=== PATIENT | female | born 1950 | race Caucasian/White ===

== ENCOUNTER → 2016-11-29 | Outpatient (CLI) | payer MEDICAID ==
[2016-11-29 10:24] LABS: Basophils % (A) 1 %; CH 32.9; Eosinophils # (A) 0.2 k/uL (0-0.7); Eosinophils % (A) 2 %; HCT 43.7 % (34.0-46.0); HDW 2.71; Luc # (Auto) 0.13; Luc % (Auto) 2; Lymphocytes # (A) 1.5 k/uL (1.0-4.8); Lymphocytes % (A) 25 %; MCH 32.3 pg (25.0-35.0); MCHC 34.3 g/dL (31.0-37.0); MCV 94.3 fL (80.0-100.0); Mean Platelet Volume 6.5; Monocytes # (A) 0.2 k/uL (0-1.0); Monocytes % (A) 4 %; Neutrophils # (A) 4.2 k/uL (1.3-7.7); Neutrophils % (A) 67 %; RBC 4.64 m/uL (3.80-5.40); RDW 13.2 % (11.5-15.5); WBC 6.2 k/uL (3.8-10.6); WBC (Perox) 6.26
[2016-11-29 10:36] LABS: ALT 41 U/L (9-52); AST 31 U/L (14-36); Alkaline Phosphatase 133 U/L (38-126); Anion Gap 13 mmol/L; Blood Urea Nitrogen 14 mg/dL (7-17); Calcium 9.6 mg/dL (8.4-10.2); Carbon Dioxide 22 mmol/L (22-30); Chloride 109 mmol/L (98-107); Cholesterol 171 mg/dL (<200); Glucose 179 mg/dL (74-99); HDL Cholesterol 50 mg/dL (40-60); Non-African American GFR(MDRD) >60 (>60 ml/min/1.73 sqM); Potassium 4.8 mmol/L (3.5-5.1); Sodium 144 mmol/L (137-145); Total Bilirubin 0.8 mg/dL (0.2-1.3); Total Protein 7.2 g/dL (6.3-8.2); Triglycerides 248 mg/dL (<150)
[2016-11-29 10:57] LABS: Hemoglobin A1C 7.5 % (4.2-6.1)
== END | disposition home or self-care (01) ==
LOC: LABWHC1 10:01
PROVIDERS: ATTEND Internal Medicine Geriatric Medicine
DX: E11.9 Type 2 diabetes mellitus without complications (principal); K21.9 Gastro-esophageal reflux disease without esophagitis; K75.81 Nonalcoholic steatohepatitis (NASH); E78.00 Pure hypercholesterolemia, unspecified
CPT/HCPCS: 36415; 80053; 80061; 83036; 84439; 84443; 85025

== ENCOUNTER → 2016-12-18 | Outpatient (CLI) | payer MEDICAID ==
--- NOTE | 2016-12-19 08:05 | CT ---
EXAMINATION TYPE: CT chest wo con DATE OF EXAM: 12/18/2016 5:29 PM COMPARISON: CT cervical spine August 22, 2016 HISTORY: Abnormal Cspine CT. No complaints at time of scan. History of breast cancer with radiation to the right upper chest CT DLP: 610 mGycm. Automated Exposure Control for Dose Reduction was Utilized. TECHNIQUE: CT scan of the thorax is performed without IV contrast. FINDINGS: LUNGS: There is persistent irregular masslike consolidation posterior right upper lobe measuring 1.9 x 1.9 cm with some adjacent mild pleural thickening stable in size and appearance from prior study. Some central aerated lung is present. Finding is favored postinflammatory in etiology. No additional area of suspicious consolidation or groundglass opacity is seen. No parenchymal nodule or mass is oth erwise noted. There is no pleural effusion or pneumothorax seen bilaterally. The tracheobronchial tr ee is patent. MEDIASTINUM: Lack of IV contrast is noted to limit evaluation for mediastinal and especially hilar ad enopathy. There are no definitive greater than 1 cm hilar or mediastinal lymph nodes. No cardiomega ly or pericardial effusion is seen. Main pulmonary artery is dilated at 3.4 cm on axial image 27, adj acent ascending aorta measures 3.[address] findings suggesting underlying pulmonary artery hypertension. Coronary artery calcification is seen which is known marker for coronary artery diseas e. OTHER: Mild multilevel spurring throughout the spine is present. Slight scoliotic curvature upper tho racic spine is seen. Surgical clips right axillary region and right chest wall are present consistent with right-sided mastectomy and reconstruction. IMPRESSION: Stable irregular masslike consolidation posterior aspect right upper lung with adjacent p leural thickening, strongly favor postinflammatory etiology or scar. Patient may benefit with continu ed CT follow-up to document two-year stability or with PET/CT to definitively exclude malignancy.
== END | disposition home or self-care (01) ==
LOC: RADCTMAIN 16:50
PROVIDERS: ATTEND Internal Medicine Geriatric Medicine
DX: R91.8 Other nonspecific abnormal finding of lung field (principal)
CPT/HCPCS: 71250

== ENCOUNTER → 2017-03-27 | Outpatient (CLI) | payer MEDICAID ==
[2017-03-27 08:54] LABS: Basophils # (A) 0.1 k/uL (0-0.2); Basophils % (A) 1 %; CH 33.6; Eosinophils # (A) 0.1 k/uL (0-0.7); Eosinophils % (A) 2 %; HCT 41.3 % (34.0-46.0); HDW 2.65; HGB 14.2 gm/dL (11.4-16.0); Luc # (Auto) 0.14; Luc % (Auto) 2; Lymphocytes # (A) 1.9 k/uL (1.0-4.8); Lymphocytes % (A) 28 %; MCH 33.2 pg (25.0-35.0); MCHC 34.5 g/dL (31.0-37.0); MCV 96.5 fL (80.0-100.0); Mean Platelet Volume 6.8; Monocytes # (A) 0.3 k/uL (0-1.0); Monocytes % (A) 4 %; Neutrophils # (A) 4.2 k/uL (1.3-7.7); Neutrophils % (A) 63 %; RBC 4.28 m/uL (3.80-5.40); RDW 13.7 % (11.5-15.5); WBC 6.7 k/uL (3.8-10.6); WBC (Perox) 6.68
[2017-03-27 09:26] LABS: Hemoglobin A1C 7.2 % (4.2-6.1)
[2017-03-27 09:41] LABS: ALT 41 U/L (9-52); AST 28 U/L (14-36); Alkaline Phosphatase 154 U/L (38-126); Anion Gap 13 mmol/L; Blood Urea Nitrogen 19 mg/dL (7-17); Calcium 9.6 mg/dL (8.4-10.2); Carbon Dioxide 22 mmol/L (22-30); Chloride 106 mmol/L (98-107); Cholesterol 202 mg/dL (<200); Glucose 184 mg/dL (74-99); HDL Cholesterol 49 mg/dL (40-60); Non-African American GFR(MDRD) >60 (>60 ml/min/1.73 sqM); Potassium 4.5 mmol/L (3.5-5.1); Sodium 141 mmol/L (137-145); Total Bilirubin 0.6 mg/dL (0.2-1.3); Total Protein 6.9 g/dL (6.3-8.2); Triglycerides 460 mg/dL (<150)
== END | disposition home or self-care (01) ==
LOC: LABWHC1 08:15
PROVIDERS: ATTEND Nurse Practitioner Family
DX: I10 Essential (primary) hypertension (principal); E11.9 Type 2 diabetes mellitus without complications; E78.00 Pure hypercholesterolemia, unspecified; R00.1 Bradycardia, unspecified
CPT/HCPCS: 36415; 80053; 80061; 83036; 84439; 84443; 85025

== ENCOUNTER → 2017-04-24 | Outpatient (CLI) | payer MEDICAID ==
--- NOTE | 2017-04-24 11:33 | ECHOF ---
Referral Reason:R94.31 adn ekg MEASUREMENTS -------- HEIGHT: 172.7 cm WEIGHT: 80.3 kg BP: 172/79 FINDINGS -------- Utilizing the standard Alphonse protocol the patient was exercised for 5 minutes, 0 seconds, achieving a maximum heart rate of 156 , which is 100% of predicted maximal heart rate. There was physiologic heart rate and blood pressure response to exercise. Max Heart Rate: 156 % of Max Predicted Heart Rate: 100% Rest Heart Rate: 83 Rest BP: 172 Max BP: 211/81 Mets Achieved: 7.0 The test was stopped because of fatigue. The test was stopped because the target heart rate was achieved. This level of exercise represents an average exercise tolerance for age. Sinus rhythm. In response to stress, the ECG showed no ST-T wave changes (see exercise report for details). In response to stress, the ECG showed no ST-T wave changes (see exercise report for details). There were normal blood pressure and heart rate responses to stress. LV size, wall thickness and systolic function are normal, with an EF of 60%. Echo images were acquired at peak stress which demonstrated new regional wall motion abnormalities. Anterior apical hypokinesis CONCLUSIONS -------- 1. This level of exercise represents an average exercise tolerance for age. 2. In response to stress, the ECG showed no ST-T wave changes (see exercise report for details). 3. Anterior apical hypokinesis 4. 2D echocardiographic evidence of inducible ishemia at achieved workload. BLEACH LIQUOR MAKER: Vickey Rangel RDCS
== END | disposition home or self-care (01) ==
LOC: RADNMMAIN 09:15
PROVIDERS: ATTEND Internal Medicine Geriatric Medicine
DX: R94.31 Abnormal electrocardiogram [ECG] [EKG] (principal)
CPT/HCPCS: 93017; 93350

== ENCOUNTER → 2017-05-01 | Outpatient (CLI) | payer MEDICAID ==
[2017-05-01 14:48] LABS: CH 32.8; CHCM 35.2; HCT 41.4 % (34.0-46.0); HDW 2.71; HGB 14.9 gm/dL (11.4-16.0); MCH 33.7 pg (25.0-35.0); MCV 93.7 fL (80.0-100.0); Mean Platelet Volume 6.9; RBC 4.42 m/uL (3.80-5.40); RDW 13.3 % (11.5-15.5); WBC 7.3 k/uL (3.8-10.6)
[2017-05-01 15:01] LABS: Anion Gap 15 mmol/L; Blood Urea Nitrogen 15 mg/dL (7-17); Carbon Dioxide 20 mmol/L (22-30); Chloride 106 mmol/L (98-107); Non-African American GFR(MDRD) >60 (>60 ml/min/1.73 sqM); Potassium 4.8 mmol/L (3.5-5.1); Sodium 141 mmol/L (137-145)
== END | disposition home or self-care (01) ==
LOC: LABPAT 13:59
PROVIDERS: ATTEND Internal Medicine Interventional Cardiology
DX: Z01.812 Encounter for preprocedural laboratory examination (principal); R94.30 Abnormal result of cardiovascular function study, unspecified
CPT/HCPCS: 36415; 80051; 82565; 84520; 85027

== ENCOUNTER 2017-05-06 06:11 | Day surgery (SDC) | payer MEDICAID ==
[2017-04-30 14:16] VITALS: BMI 27.0
[2017-05-06] MEDS ORDERED: NITROGLYCERIN SL TABS 0.4 MG TAB SUBLINGUAL PRN (06:27)
[2017-05-06] MEDS ORDERED: ATORVASTATIN 80 MG TAB PO STA (06:27)
[2017-05-06] MEDS ORDERED: ALPRAZolam 0.25 MG TAB PO PRN (06:27)
[2017-05-06] MEDS ORDERED: SODIUM CHLORIDE 0.9% 1,000 ML in EMPTY BAG 1 BAG IV ONE (06:27)
[2017-05-06] MEDS ORDERED: ALPRAZolam 0.5 MG TAB PO PRN (06:27)
[2017-05-06] MEDS ORDERED: ASPIRIN 325 MG TAB PO STA (06:27)
[2017-05-06 06:47] VITALS: TEMP 98.3
[2017-05-06] MEDS ORDERED: LIDOCAINE 2% INJ 20 MG/ML (20 ML MDV) ONE (07:10)
[2017-05-06] MEDS ORDERED: VERAPAMIL 2.5 MG/ML 2 ML AMP ONE ×2 (07:11→07:53)
[2017-05-06 07:14] LABS: Glucose,Whole Blood 211 mg/dL (75-99)
[2017-05-06] MEDS ORDERED: fentaNYL (PF) 50 MCG/ML 2 ML AMP ONE (07:25)
[2017-05-06] MEDS ORDERED: HEPARIN SODIUM 1,000 UN/ML (10ML VL) ONE (07:25)
[2017-05-06] MEDS ORDERED: diphenhydrAMINE 50 MG/ML 1 ML VIAL ONE (07:25)
[2017-05-06] MEDS ORDERED: INSULIN LISPRO (humaLOG) 300 UNIT/3 ML VIAL SQ SCH (07:30)
[2017-05-06] MEDS ORDERED: diphenhydrAMINE 50 MG/ML 1 ML VIAL IVP ONE ×2 (07:33→07:37)
[2017-05-06] MEDS ORDERED: fentaNYL (PF) 50 MCG/ML 2 ML AMP IVP ONE ×2 (07:33→07:38)
[2017-05-06] MEDS: VERAPAMIL SYRINGE (5 MG/10 ML) INTRAARTER ONE ×2 (07:34→07:53)
[2017-05-06] MEDS ORDERED: LIDOCAINE 2% INJ 20 MG/ML SQ ONE ×4 (07:34→07:45)
[2017-05-06] MEDS ORDERED: VERAPAMIL SYRINGE (5 MG/10 ML) INTRAARTER ONE ×2 (07:41→07:42)
[2017-05-06] MEDS ORDERED: HEPARIN SODIUM 1,000 UN/ML (10ML VL) IV ONE (07:51)
[2017-05-06] MEDS ORDERED: NITROGLYCERIN 1000MCG/10ML SYRINGE INTRACORON ONE (07:56)
[2017-05-06] MEDS ORDERED: IOHEXOL 350 MG/ML 125ML BOTTLE INJ ONE (08:04)
[2017-05-06] MEDS ORDERED: RX INFO: IV CONTRAST WAS GIVEN 1 EACH MISC MISCELLANE PRN (08:16)
[2017-05-06] MEDS ORDERED: ZOLPIDEM 10 MG TAB PO PRN (08:17)
[2017-05-06] MEDS ORDERED: SODIUM CHLORIDE 0.9% 1,000 ML IV SCH (08:30)
[2017-05-06] MEDS ORDERED: VENLAFAXINE HCL 37.5 MG TAB PO SCH (09:00)
[2017-05-06] MEDS ORDERED: NON-FORMULARY DRUG (Omeprazole [Omeprazole] 20 MG) PO SCH (09:00)
[2017-05-06] MEDS ORDERED: LISINOPRIL 10 MG TAB PO SCH (09:00)
[2017-05-06 09:52] VITALS: RESP 16
[2017-05-06 13:07] VITALS: BP 145/76; PULSE 87
[2017-05-06] MEDS ORDERED: ATORVASTATIN 20 MG TAB PO SCH (21:00)
[2017-05-06] MEDS ORDERED: NON-FORMULARY DRUG (Aspirin [Adult Low Dose Aspirin Ec] 162 MG) PO SCH (21:00)
--- NOTE | 2017-05-07 05:30 | CC ---
Mrs. Membreno is a 66-year-old female with known history of hypertension, hyperlipidemia and diabetes mellitus as well as family history of premature coronary artery disease who presented with occasional fluttering in the chest underwent a stress echocardiogram that revealed evidence of anteroapical wall ischemia. In view of that, recommendation was made regarding cardiac catheterization. The procedure as well as the risks and the complications were discussed with the patient who is in full understanding and agreement. PROCEDURE: Patient was brought to the labor utilization superintendent in fasting semi-sedated state after receiving Fentanyl and Benadryl and achieving moderate conscious sedated stated, using Xylocaine anesthesia under Seldinger's technique, a 6 Eritrean was introduced into the right radial artery. Selective right and left coronary angiography was performed using 5 Eritrean 3-1/2 bend right and left Pan catheter. Multiple views of the coronary artery including hemiaxial views were obtained. Following that 5 Eritrean tight pigtail catheter was introduced into the left ventricle and a 30-degree FINE view of the left ventricle was obtained. Following that, catheters and sheaths were removed. Hemostasis was obtained with deployment of an TR band. There was no immediate complication. The patient was returned to her room in stable condition. FINDINGS: LEFT MAIN: This is a large size vessel bifurcating into the circumflex and left anterior descending artery. Left main coronary artery is without any significant obstructive disease. LEFT ANTERIOR DESCENDING ARTERY: This is a large size vessel reaching towards the apex with a wrap around apex segment giving rise to a large branching diagonal branch proximally. The left anterior descending artery proximally and before the take off of the first septal professor of german has an eccentric 30% plaque. The rest of the vessel has mild intimal disease without any evidence of high grade stenosis. LEFT CIRCUMFLEX: This is a dominant vessel bifurcating distally in PDA and PLV giving rise to a proximal large obtuse marginal branch. The left circumflex has mild plaque in the mid segment of 20% to 30%. The rest of the vessel has no high grade stenosis. RIGHT CORONARY ARTERY: This is a small nondominant vessel giving rise to an acute marginal branch. The right coronary artery as well as its branches has no evidence of obstructive coronary disease. LEFT VENTRICULOGRAM: The left ventriculogram was performed in the 30-degree FINE view and revealed normal left ventricular size and systolic function. Ejection fraction 60%. There was no significant mitral regurgitation. HEMODYNAMICS; There was no gradient across the aortic valve. The left ventricular end-diastolic pressure was 20 mmHg. CONCLUSION: 1. Mild triple vessel coronary artery disease. 2. Normal left ventricular size and systolic function. RECOMMENDATIONS: In view of finding anatomy, I recommend to continue medical therapy with aggressive coronary risk modification that has been initiated. Those findings and recommendations were discussed with the patient and her family and are in full understanding and agreement. Duration of the procedure is 27 minutes. MTDD
--- NOTE | 2017-05-07 05:37 | MISC ---
May 06, 2017 Re: Amelia Membreno Dear Dr. West: I had the opportunity to perform cardiac catheterization on Mrs. Membreno at [facility] on the 06 of May and a full copy of the procedure note will be forwarded to you. In brief, she was found to have mild triple vessel coronary artery disease with preserved systolic function. Based on those findings, I recommend continue mediation therapy with aggressive coronary risk modifications that have been initiated. Thank you again for allowing me the opportunity to participate in her care. Please feel free to call for any questions. Sincerely yours, Ciro LEBLANC
== END 2017-05-06 13:10 | disposition home or self-care (01) ==
LOC: CATHCVL 06:11
PROVIDERS: ATTEND Internal Medicine Interventional Cardiology
DX: I25.10 Atherosclerotic heart disease of native coronary artery without angina pectoris (principal); R94.39 Abnormal result of other cardiovascular function study; I10 Essential (primary) hypertension; E78.2 Mixed hyperlipidemia; E11.9 Type 2 diabetes mellitus without complications; E78.00 Pure hypercholesterolemia, unspecified; Z82.49 Family history of ischemic heart disease and other diseases of the circulatory system; Z85.3 Personal history of malignant neoplasm of breast; Z90.12 Acquired absence of left breast and nipple; Z79.84 Long term (current) use of oral hypoglycemic drugs; Z79.82 Long term (current) use of aspirin; Z79.899 Other long term (current) drug therapy; Z87.891 Personal history of nicotine dependence
CPT/HCPCS: 93458; 99152; 99153; C1769 ×3; C1894; J2001; J1200; J3010; J1644; Q9967

== ENCOUNTER → 2017-07-08 | Outpatient (CLI) | payer MEDICAID ==
--- NOTE | 2017-07-09 07:19 | MM ---
Reason for exam: follow-up at short interval from prior study. Last mammogram was performed 10 months ago. History: Patient is postmenopausal, has history of breast cancer at age 49, previous chest radiation therapy, and is nulliparous. Family history of breast cancer in maternal aunt at age 80 and breast cancer in maternal aunt at age 40. Excisional biopsy of the left breast, 2008. TRAM Reconstruction, 2005. Breast lift of the left breast, 2001. Reduction of the left breast, 2001. Mastectomy of the right breast, 1999. Chemotherapy. Radiation therapy. Took antineoplastic for 11 years beginning at age 50. Physical Findings: Nurse did not find any significant physical abnormalities on exam. MG 3D Diag Mammo W/Cad LT CC and MLO view(s) were taken of the left breast. Prior study comparison: September 19, 2016, left breast MG 3d diag mammo w/cad LT. September 13, 2015, left breast MG 3d diag mammo w/cad LT. The breast tissue is heterogeneously dense. This may lower the sensitivity of mammography. Finding: There are typically benign round, diffuse/scattered, regional calcifications in the left breast. There is no discrete abnormality. These results were verbally communicated with the patient and result sheet given to the patient on 07/08/17. ASSESSMENT: Benign, BI-RAD 2 RECOMMENDATION: Follow-up diagnostic mammogram of the left breast in 1 year.
--- NOTE | 2017-07-09 07:20 | USB ---
Reason for exam: follow-up at short interval from prior study. History: Patient is postmenopausal, has history of breast cancer at age 49, previous chest radiation therapy, and is nulliparous. Family history of breast cancer in maternal aunt at age 80 and breast cancer in maternal aunt at age 40. Excisional biopsy of the left breast, 2008. TRAM Reconstruction, 2005. Breast lift of the left breast, 2001. Reduction of the left breast, 2001. Mastectomy of the right breast, 1999. Chemotherapy. Radiation therapy. Took antineoplastic for 11 years beginning at age 50. US Breast LT Left breast ultrasound includes all four quadrants, the retroareolar region and axilla. Finding demonstrates a 0.5 x 0.6 x 0.3cm lesion too small to characterize at 6 o'clock, stable, 4cm from nipple. These results were verbally communicated with the patient and result sheet given to the patient on 07/08/17. ASSESSMENT: Benign, BI-RAD 2 RECOMMENDATION: Follow-up diagnostic mammogram of the left breast in 1 year.
== END | disposition home or self-care (01) ==
LOC: RADMAMWWP 15:00
PROVIDERS: ATTEND Internal Medicine Geriatric Medicine
DX: C50.911 Malignant neoplasm of unspecified site of right female breast (principal)
CPT/HCPCS: 76641; G0206; G0279

== ENCOUNTER → 2017-11-27 | Outpatient (CLI) | payer MEDICAID, MEDICARE ==
[2017-11-27 11:32] LABS: ALT 44 U/L (9-52); AST 34 U/L (14-36); Albumin 4.3 g/dL (3.5-5.0); Alkaline Phosphatase 133 U/L (38-126); Anion Gap 13 mmol/L; Blood Urea Nitrogen 14 mg/dL (7-17); Calcium 10.1 mg/dL (8.4-10.2); Carbon Dioxide 24 mmol/L (22-30); Chloride 104 mmol/L (98-107); Glucose 194 mg/dL (74-99); Potassium 4.9 mmol/L (3.5-5.1); Sodium 141 mmol/L (137-145); Total Bilirubin 0.4 mg/dL (0.2-1.3); Total Protein 6.9 g/dL (6.3-8.2)
== END | disposition home or self-care (01) ==
LOC: LABWHC1 10:46
PROVIDERS: ATTEND Internal Medicine Geriatric Medicine
DX: R94.5 Abnormal results of liver function studies (principal)
CPT/HCPCS: 36415; 80053

== ENCOUNTER → 2018-08-18 | Outpatient (CLI) | payer MEDICARE ==
--- NOTE | 2018-08-18 15:19 | NM ---
EXAMINATION TYPE: NM bone scan whole body DATE OF EXAM: 08/18/2018 COMPARISON: NONE HISTORY: Hypercalcemia Delayed whole-body scanning was performed following the injection of 23.4 mCi Tc 99m MDP. Images acq uired 3 hours post injection. FINDINGS: Soft tissue uptake is normal. Uptake within the feet, knees, shoulders, hands is likely due to degene rative change. No areas of abnormal increased or decreased uptake to suggest metastatic disease. IMPRESSION: Osteoarthritis.
== END | disposition home or self-care (01) ==
LOC: RADNMMAIN 11:10
PROVIDERS: ATTEND Internal Medicine Geriatric Medicine
DX: M19.90 Unspecified osteoarthritis, unspecified site (principal)
CPT/HCPCS: 78306; A9503

== ENCOUNTER → 2018-09-08 | Outpatient (CLI) | payer MEDICARE ==
--- NOTE | 2018-09-09 08:22 | MM ---
Reason for exam: additional evaluation requested from prior study. Last mammogram was performed 1 year and 2 months ago. History: Patient is postmenopausal, has history of breast cancer at age 49, previous chest radiation therapy, and is nulliparous. Family history of breast cancer in maternal aunt at age 80 and breast cancer in maternal aunt at age 40. Excisional biopsy of the left breast, 2008. TRAM Reconstruction, 2005. Breast lift of the left breast, 2001. Reduction of the left breast, 2001. Mastectomy of the right breast, 1999. Chemotherapy. Radiation therapy. Took antineoplastic for 11 years beginning at age 50. Physical Findings: Nurse did not find any significant physical abnormalities on exam. MG 3D Diag Mammo W/Cad LT CC and MLO view(s) were taken of the left breast. Prior study comparison: July 08, 2017, left breast MG 3d diag mammo w/cad LT. September 19, 2016, left breast MG 3d diag mammo w/cad LT. The breast tissue is heterogeneously dense. This may lower the sensitivity of mammography. Benign calcifications in the left breast. No suspicious abnormality. These results were verbally communicated with the patient and result sheet given to the patient on 09/08/18. ASSESSMENT: Benign, BI-RAD 2 RECOMMENDATION: Follow-up diagnostic mammogram of the left breast in 1 year.
== END | disposition home or self-care (01) ==
LOC: RADMAMWWP 15:26
PROVIDERS: ATTEND Internal Medicine Geriatric Medicine
DX: Z08 Encounter for follow-up examination after completed treatment for malignant neoplasm (principal); Z85.3 Personal history of malignant neoplasm of breast
CPT/HCPCS: 77065; G0279; 77061

== ENCOUNTER → 2019-01-15 | Outpatient (CLI) | payer MEDICARE ==
--- NOTE | 2019-01-16 10:28 | BD ---
EXAMINATION TYPE: Axial Bone Density DATE OF EXAM: 01/15/2019 COMPARISON: 11.28.2011 CLINICAL HISTORY: 68 YR OLD FEMALE...ICD-10 CODE: M81.0 OSTEOPOROSIS Height: 67 Weight: 180 FRAX RISK QUESTIONS: Family History (Parent hip fracture): YES Current Tobacco Use: YES RISK FACTORS HISTORY OF: Family History of Osteoporosis: YES, HER MOTHER WITH BROKEN HIP Postmenopausal woman: YES, AT AGE 49 YRS OLD MEDICATIONS: Additional Medications: BP MEDS, EFFEXOR, ORAL DIABETIC MEDS, HX OF CHEMO AND RADIATION, REFLUX MEDS, STATIN FOR CHOLESTEROL, Additional History: HYPERCALCEMIA, RT BREAST CANCER, MASTECTOMY WITH TRAM FLAP RECONSTRUCTION, DIABET IC, HYPERTENSION EXAM MEASUREMENTS: Bone mineral densitometry was performed using the Cam[employer] System. Bone mineral density as measured about the Lumbar spine is: ----- L1-L4(G/cm2): 1.052 T Score Values are as follows: ----- L1: -1.8 ----- L2: -0.9 ----- L3: -0.6 ----- L4: -1.2 ----- L1-L4: -1.1 Bone mineral density has: Decreased -0.4% since study of: 11.28.2011 Bone mineral density about the R hip (g/cm2): 0.784 Bone mineral density about the L hip (g/cm2): 0.821 T Score values are as follows: -----R Neck: -2.1 -----L Neck: -2.0 -----R Total: -1.8 -----L Total: -1.5 Bone mineral density has: Decreased -2.8% since study of: 11.28.2011 FRAX%s: THERE IS A 20.1% CHANCE FOR A MAJOR OSTEOPOROTIC FX AND A 3.8% FOR HIP.....PROBABILITY FOR FX IN 10 YRS TIME IMPRESSION: Osteopenia. NOTE: T-SCORE=SD OF THE YOUNG ADULT MEAN.
== END | disposition home or self-care (01) ==
LOC: RADBDWWP 15:59
PROVIDERS: ATTEND Internal Medicine Geriatric Medicine
DX: M85.851 Other specified disorders of bone density and structure, right thigh (principal); M85.852 Other specified disorders of bone density and structure, left thigh; M85.88 Other specified disorders of bone density and structure, other site
CPT/HCPCS: 77080

== ENCOUNTER 2019-01-28 07:10 | Day surgery (SDC) | payer MEDICARE ==
[2019-01-26 15:35] VITALS: BMI 27.7
[~2019-01-28 07:10] MED LIST: LACTATED RINGERS 1,000 ML IV SCH; LIDOCAINE 1% 20 ML VIAL (10MG/ML) FOR IV START INTRADERMA PRN
[2019-01-28 07:45] VITALS: RESP 16; TEMP 98
[2019-01-28] MEDS ORDERED: LACTATED RINGERS 1,000 ML IV ONE (07:56)
[2019-01-28 08:04] LABS: Glucose,Whole Blood 170 mg/dL (75-99)
[2019-01-28] MEDS ORDERED: PROPOFOL 10 MG/ML 20 ML VIAL IV ONE (08:10)
--- NOTE | 2019-01-28 08:39 | P.PCN ---
Date of Procedure: 01/28/19 Procedure(s) Performed: BRIEF HISTORY: Patient is a 68-year-old pleasant white female, scheduled for an elective colonoscopy as a part of screening for colonic neoplasia. She was recently noted to have stool that was positive for cologuard. PROCEDURE PERFORMED: Colonoscopy with snare polypectomy. PREOPERATIVE DIAGNOSIS: Positive cologuard. IV sedation per Anesthesia. PROCEDURE: After informed consent was obtained, the patient, was brought into the endoscopy unit. IV sedation was administered by Anesthesia under continuous monitoring. Digital rectal examination was normal. Initially the Olympus CF-160 flexible video colonoscope was then inserted in the rectum, gradually advanced into the sigmoid colon and further advancement was not possible because of acute angle duration this area. The scope was removed pediatric colonoscopy was then introduced into the rectum and gradually advanced into the cecum without any difficulty. Careful examination was performed as the scope was gradually being withdrawn. Ileocecal valve and the appendiceal orifice were visualized and appeared normal. Prep was fair. Mucosa of the cecum appeared normal. In the ascending colon there was a 5 mm sessile polyp removed by snare polypectomy. In the transverse colon there was another 5 mm polyp that was removed by snare polypectomy. Rest of the, ascending colon, transverse colon, descending colon, sigmoid colon, and rectum appeared normal. Retroflexion was performed in the rectum and no lesions were seen. The patient tolerated the procedure well. IMPRESSION: 5 mm ascending colon polyp status post snare polypectomy 5 mm transverse colon polyp status post snare polypectomy Extensive left sided diverticulosis RECOMMENDATIONS: Findings of this examination were discussed with the patient as well as her family. She was advised to follow with the biopsy results. If the biopsy shows adenoma, she can have a repeat colonoscopy in 5 years.
[2019-01-28 08:54] VITALS: BP 128/76; PULSE 80
== END 2019-01-28 09:12 | disposition home or self-care (01) ==
LOC: ORWHC2ENDO 07:10
PROVIDERS: ATTEND Internal Medicine Gastroenterology
DX: K57.30 Diverticulosis of large intestine without perforation or abscess without bleeding (principal); D12.2 Benign neoplasm of ascending colon; D12.3 Benign neoplasm of transverse colon; Z79.82 Long term (current) use of aspirin; Z79.899 Other long term (current) drug therapy; I10 Essential (primary) hypertension; E78.5 Hyperlipidemia, unspecified; Z85.3 Personal history of malignant neoplasm of breast; Z92.21 Personal history of antineoplastic chemotherapy; Z92.3 Personal history of irradiation; E11.9 Type 2 diabetes mellitus without complications; D68.51 Activated protein C resistance; Z79.84 Long term (current) use of oral hypoglycemic drugs
CPT/HCPCS: 88305; 45385; J2704

== ENCOUNTER → 2019-06-11 | Outpatient (CLI) | payer MEDICARE ==
--- NOTE | 2019-06-11 12:21 | US ---
EXAMINATION TYPE: US abdomen complete DATE OF EXAM: 06/11/2019 COMPARISON: NONE CLINICAL HISTORY: R10.84 GENERALIZED ABD PAIN. Patient feels lump RUQ, Just under right breast area. Patient history of breast cancer with reconstruction. EXAM MEASUREMENTS: Liver Length: 18.1 cm Gallbladder Wall: 0.2 cm CBD: 0.4 cm Spleen: 11.6 cm Right Kidney: 11.5 x 5.6 x 5.5 cm Left Kidney: 12.6 x 6.3 x 5.9 cm Pancreas: Obscured by bowel gas Liver: wnl Gallbladder: 4 mm nondependent polyp is noted on image . Evidence for sonographic Candelario's sign: No CBD: wnl Spleen: wnl Right Kidney: 1.0 cm cyst lower pole, lateral. ? Mid pole solid mass = 4.1 x 2.9 x 2.4 cm with vascu larity. Left Kidney: No hydronephrosis or masses seen, sub optimal visualization overall. Upper IVC: wnl Abd Aorta: wnl No mass seen at area of palpable lump The liver is homogenous. The intrahepatic portion of the IVC and proximal abdominal aorta are within normal limits. There is no evidence of cholelithiasis. Common bile duct is unremarkable. The visu alized portions of the pancreas are homogenous. The spleen is unremarkable. Kidneys are symmetric a nd free of hydronephrosis. IMPRESSION: 1. Solid-appearing right renal mass measures 4.1 cm and has internal vascularity. Three-phase enhance d CT abdomen is recommended to exclude neoplasm. 2. No solid or cystic mass is seen at the patient's area of palpable abnormality of the right chest w all. Considering this patient's history of breast cancer diagnostic mammogram is recommended on the r ight. 3. Incidentally noted subcentimeter gallbladder polyp and right renal cyst. 4. Obscuration of the pancreas by overlying bowel gas.
== END | disposition home or self-care (01) ==
LOC: RADUSWWP 10:02
PROVIDERS: ATTEND Internal Medicine Geriatric Medicine
DX: K86.89 Other specified diseases of pancreas (principal)
CPT/HCPCS: 76700

== ENCOUNTER → 2019-06-23 | Outpatient (CLI) | payer MEDICARE ==
[2019-06-23 17:54] LABS: African American GFR (CKD) >90 (>60 ml/min/1.73 sqM); Blood Urea Nitrogen 14 mg/dL (7-17)
--- NOTE | 2019-06-24 07:39 | CT ---
EXAMINATION TYPE: CT abdomen wo/w con DATE OF EXAM: 06/23/2019 COMPARISON: 06/11/2019 ultrasound INDICATION: right side renal mass. hx of breast ca. DLP: 1294.3 mGycm, Automated exposure control for dose reduction was used. CONTRAST: 100 mL of Isovue 300. Study performed with Oral Contrast TECHNIQUE: Axial images were obtained from above the diaphragm to the iliac crests in the axial plane at 5 mm thick sections. Reconstructed images are reviewed on the computer in the coronal plane. FINDINGS: Limited CT sections are obtained the lung bases. The lung bases are clear. CT ABDOMEN: Liver: Normal Spleen: Normal Pancreas: Normal Adrenal glands: The adrenal glands are normal. Gallbladder: Normal Kidneys: No masses are evident. No hydronephrosis is present. On precontrast images there are punct ate calcifications within the right kidney. No hydronephrosis is evident. No hydroureter is evident. Early and delayed phase contrast imaging is performed through the kidneys. There is a 1 cm hypodense lesion measuring 26 Hounsfield units in the posterior lateral right mid kidney. This is best visuali zed on the delayed images. The patient's right renal mass identified by ultrasound is not readily jozef arent on the CT examination. Recommend contrast MRI to complete the evaluation. Aorta: Vascular calcification is within the aorta. Inferior vena cava: Normal. Loops of bowel within the abdomen and upper pelvis are normal. There are loops of bowel which are incompletely distended or lack oral contrast limiting their evaluation. Appendix: Normal as visualized. Osseous structures: No suspicious lytic or sclerotic lesions. Facet degenerative changes and right sa croiliac joint degenerative changes are noted within the [id number]. IMPRESSIONS: 1. No obvious mass based on CT examination within the right kidney. Contrast MRI is recommended to c omplete the evaluation. 2. There is a small probable cyst corresponding to the ultrasound findings within the posterior right mid kidney.
== END | disposition home or self-care (01) ==
LOC: RADCTMAIN 16:28
PROVIDERS: ATTEND Internal Medicine Geriatric Medicine
DX: N28.89 Other specified disorders of kidney and ureter (principal)
CPT/HCPCS: 82565; 84520; 74170; 36415; Q9967

== ENCOUNTER → 2019-07-13 | Outpatient (CLI) | payer MEDICARE ==
--- NOTE | 2019-07-13 14:18 | MR ---
MR abdomen with and without contrast HISTORY: Disorder of kidneys Multiplanar multisequence and postcontrast images obtained through the kidneys following 7.5 cc Gadav ist IV. Correlation to CT 06/23/2019, ultrasound 06/11/2019 Cortical cysts are again noted in the kidneys bilaterally, the largest on the right measures only jozef roximately 13 mm in size similar to that seen on ultrasound and the right kidney. There is no evident soft tissue mass present. Lobular contour within the right kidney likely accounts for appearance on ultrasound. No hydronephrosis. Adrenal glands, spleen, pancreas, gallbladder are unremarkable. Lung bases are clear. Aorta shows nor mal caliber. There is no ascites. Diverticular change noted in the colon. IMPRESSION: No evident soft tissue renal mass. Small cortical cysts, largest in the right kidney as d escribed.
== END | disposition home or self-care (01) ==
LOC: RADMRIMAIN 08:58
PROVIDERS: ATTEND Internal Medicine Geriatric Medicine
DX: N28.89 Other specified disorders of kidney and ureter (principal)
CPT/HCPCS: 74183; A9585

== ENCOUNTER → 2019-10-28 | Outpatient (CLI) | payer MEDICARE ==
--- NOTE | 2019-10-28 12:04 | MM ---
Reason for exam: additional evaluation requested from prior study. Last mammogram was performed 1 year and 2 months ago. History: Patient is postmenopausal, has history of breast cancer at age 49, previous chest radiation therapy, and is nulliparous. Family history of breast cancer in maternal aunt at age 80 and breast cancer in maternal aunt at age 40. Excisional biopsy of the left breast, 2008. TRAM Reconstruction, 2005. Breast lift of the left breast, 2001. Reduction of the left breast, 2001. Mastectomy of the right breast, 1999. Chemotherapy. Radiation therapy. Took antineoplastic for 11 years beginning at age 50. Physical Findings: Nurse did not find any significant physical abnormalities on exam. MG 3D Diag Mammo W/Cad LT CC, MLO, and ML view(s) were taken of the left breast. Prior study comparison: September 08, 2018, left breast MG 3d diag mammo w/cad LT. July 08, 2017, left breast MG 3d diag mammo w/cad LT. The breast tissue is heterogeneously dense. This may lower the sensitivity of mammography. Benign appearing calcifications in the left breast. These results were verbally communicated with the patient and result sheet given to the patient on 10/28/19. ASSESSMENT: Incomplete: need additional imaging evaluation, BI-RAD 0 RECOMMENDATION: Ultrasound. (right)
--- NOTE | 2019-10-28 12:05 | USB ---
Reason for exam: additional evaluation requested from abnormal screening. History: Patient is postmenopausal, has history of breast cancer at age 49, previous chest radiation therapy, and is nulliparous. Family history of breast cancer in maternal aunt at age 80 and breast cancer in maternal aunt at age 40. Excisional biopsy of the left breast, 2008. TRAM Reconstruction, 2005. Breast lift of the left breast, 2001. Reduction of the left breast, 2001. Mastectomy of the right breast, 1999. Chemotherapy. Radiation therapy. Took antineoplastic for 11 years beginning at age 50. US Breast Limited RT Right limited breast ultrasound including focal area of concern, retroareolar and axilla demonstrates no cystic or solid lesion seen. These results were verbally communicated with the patient and result sheet given to the patient on 10/28/19. ASSESSMENT: Incomplete: need additional imaging evaluation, BI-RAD 0 RECOMMENDATION: Breast MRI.
== END | disposition home or self-care (01) ==
LOC: RADMAMWWP 08:12
PROVIDERS: ATTEND Internal Medicine Geriatric Medicine
DX: R92.8 Other abnormal and inconclusive findings on diagnostic imaging of breast (principal); Z85.3 Personal history of malignant neoplasm of breast
CPT/HCPCS: 77065; 76642; G0279; 77061

== ENCOUNTER → 2021-02-22 | Outpatient (CLI) | payer MEDICARE ==
--- NOTE | 2021-02-23 11:52 | MM ---
Reason for exam: additional evaluation requested from prior study. Last mammogram was performed 1 year and 4 months ago. History: Patient is postmenopausal, has history of breast cancer at age 49, previous chest radiation therapy, and is nulliparous. Family history of breast cancer in maternal aunt at age 80 and breast cancer in maternal aunt at age 40. Excisional biopsy of the left breast, 2008. TRAM Reconstruction, 2005. Breast lift of the left breast, 2001. Reduction of the left breast, 2001. Mastectomy of the right breast, 1999. Chemotherapy. Radiation therapy. Took antineoplastic for 15 years. Physical Findings: Nurse did not find any significant physical abnormalities on exam. MG 3D Diag Mammo W/Cad LT CC, MLO, and XCCL view(s) were taken of the left breast. Prior study comparison: October 28, 2019, left breast MG 3d diag mammo w/cad LT. September 08, 2018, left breast MG 3d diag mammo w/cad LT. The breast tissue is heterogeneously dense. This may lower the sensitivity of mammography. Scattered left breast calcifications. These results were verbally communicated with the patient and result sheet given to the patient on 02/22/21. ASSESSMENT: Benign, BI-RAD 2 RECOMMENDATION: Follow-up diagnostic mammogram of the left breast in 1 year.
== END | disposition home or self-care (01) ==
LOC: RADMAMWWP 13:01
PROVIDERS: ATTEND Internal Medicine Geriatric Medicine
DX: R92.2 Inconclusive mammogram (principal); R92.1 Mammographic calcification found on diagnostic imaging of breast; Z78.0 Asymptomatic menopausal state; Z80.3 Family history of malignant neoplasm of breast; Z85.3 Personal history of malignant neoplasm of breast
CPT/HCPCS: 77065; G0279; 77061

== ENCOUNTER → 2022-05-21 | Outpatient (CLI) | payer MEDICARE ==
--- NOTE | 2022-05-21 13:28 | MM ---
Reason for Exam: Follow-up at short interval from prior study. Last mammogram was performed 1 year(s) and 3 month(s) ago. Patient History: Menarche at age 14. Patient has no children. Postmenopausal. Breast cancer, age 49. Previous chest radiation therapy at age 49. Previous chemotherapy at age 49. 1999, Mastectomy on the Right side. 2001, Reduction on the Left side. 2008, Excisional Biopsy on the Left side. Chemotherapy. 2005, TRAM Reconstruction. Radiation Therapy. Maternal aunt had breast cancer, age 80. Maternal aunt had breast cancer, age 40. Prior Study Comparison: 09/08/2018 Left Diagnostic Mammogram, [facility]. 10/28/2019 Left Diagnostic Mammogram, [facility]. 02/22/2021 Left Diagnostic Mammogram, [facility]. Tissue Density: Left: The breast tissue is heterogeneously dense. This may lower the sensitivity of mammography. Findings: Analyzed By CAD. Reduction mammoplasty changes. Benign round and punctate calcifications. Question anterior asymmetric density does not persist on additional views. No significant change from prior exams. Overall Assessment: Benign, BI-RAD 2 Management: Screening Mammogram of the left breast in 1 year. 1. Patient should continue monthly self breast exams. 2. A clinical breast exam by your physician is recommended on an annual basis. 3. This exam should not preclude additional follow-up of suspicious palpable abnormalities. Results were given to the patient verbally at the time of exam. Electronically signed and approved by: Carlos Lomas M.D. Radiologist
== END | disposition home or self-care (01) ==
LOC: RADMAMWWP 12:53
PROVIDERS: ATTEND Internal Medicine Geriatric Medicine
DX: Z78.0 Asymptomatic menopausal state (principal); Z85.3 Personal history of malignant neoplasm of breast; Z80.3 Family history of malignant neoplasm of breast
CPT/HCPCS: 77065; G0279; 77061

== ENCOUNTER → 2022-12-21 | Outpatient (CLI) | payer MEDICARE ==
[2022-12-21 23:43] LABS: African American GFR (CKD) 52.5 (60.0-200.0); Albumin 4.3 g/dL (3.8-4.9); Albumin/Globulin Ratio 1.85 (1.60-3.17); Anion Gap 13.4 mmol/L (10.00-18.00); BUN/Creat Ratio 17.02 Ratio (12.00-20.00); Blood Urea Nitrogen 20.6 mg/dL (9.0-27.0); Calcium 10.2 mg/dL (8.7-10.3); Carbon Dioxide 21.8 mmol/L (20.0-27.5); Globulin 2.3 g/dL (1.6-3.3); Non-African American GFR(CKD) 45.3 (60.0-200.0); Potassium 3.8 mmol/L (3.5-5.5); Total Bilirubin 0.3 mg/dL (0.30-1.20); Total Protein 6.6 g/dL (6.2-8.2)
== END | disposition home or self-care (01) ==
LOC: LABWHC1 15:34
PROVIDERS: ATTEND Internal Medicine Interventional Cardiology
DX: I42.8 Other cardiomyopathies (principal)
CPT/HCPCS: 36415; 80053; 83880

== ENCOUNTER 2022-12-25 08:23 | Day surgery (SDC) | payer MEDICARE ==
[~2022-12-25 08:23] MED LIST changes: +ALPRAZolam 0.25 MG TAB PO PRN; +ALPRAZolam 0.5 MG TAB PO PRN; +ASPIRIN 325 MG TAB PO STA; +ATORVASTATIN 80 MG TAB PO STA; +HEPARIN SODIUM,PORCINE 10,000 UNIT in SODIUM CHLORIDE 0.9% 1,000 ML IRRIGATION PRN; +HEPARIN SODIUM,PORCINE 2,500 UNIT in SODIUM CHLORIDE 0.9% 250 ML IRRIGATION PRN; -LACTATED RINGERS 1,000 ML IV SCH; -LIDOCAINE 1% 20 ML VIAL (10MG/ML) FOR IV START INTRADERMA PRN; +NITROGLYCERIN SL TABS 0.4 MG TAB SUBLINGUAL PRN; +SODIUM CHLORIDE 0.9% 1,000 ML in EMPTY BAG 1 BAG IV ONE
[2022-12-25 09:04] LABS: Glucose,Whole Blood 172 mg/dL (70-110)
[2022-12-25 09:09] LABS: Basophils % (A) 0 %; Eosinophils # (A) 0.1 k/uL (0-0.7); Eosinophils % (A) 2 %; HCT 36.6 % (34.0-46.0); HGB 12.2 gm/dL (11.4-16.0); Hypochromasia Slight; Lymphocytes # (A) 1.2 k/uL (1.0-4.8); Lymphocytes % (A) 15 %; MCH 29.6 pg (25.0-35.0); MCHC 33.3 g/dL (31.0-37.0); MCV 88.8 fL (80.0-100.0); Mean Platelet Volume 7.4; Monocytes # (A) 0.4 k/uL (0-1.0); Monocytes % (A) 5 %; Neutrophils # (A) 6.1 k/uL (1.3-7.7); Neutrophils % (A) 77 %; Platelet Count 470 k/uL (150-450); Poikilocytosis Slight; RBC 4.13 m/uL (3.80-5.40); RDW 14.3 % (11.5-15.5); WBC 7.9 k/uL (3.8-10.6)
[2022-12-25 09:25] VITALS: RESP 16
[2022-12-25] MEDS ORDERED: VERAPAMIL 2.5 MG/ML 2 ML AMP ONE (11:19)
[2022-12-25] MEDS ORDERED: HEPARIN SODIUM 1,000 UN/ML (10ML VL) ONE (11:19)
[2022-12-25] MEDS ORDERED: fentaNYL (PF) 50 MCG/ML 2 ML AMP ONE (11:19)
[2022-12-25] MEDS ORDERED: LIDOCAINE 1% INJ 10MG/ML (5 ML VIAL-PF) SQ ONE ×2 (11:28)
[2022-12-25] MEDS ORDERED: fentaNYL (PF) 50 MCG/ML 2 ML AMP IV ONE (11:29)
[2022-12-25] MEDS ORDERED: VERAPAMIL SYRINGE (5 MG/10 ML) INTRAARTER ONE (11:33)
[2022-12-25] MEDS ORDERED: HEPARIN SODIUM 1,000 UN/ML (10ML VL) IV ONE ×3 (11:41→12:04)
[2022-12-25] MEDS ORDERED: CLOPIDOGREL 75 MG TAB ONE (11:55)
[2022-12-25] MEDS ORDERED: CLOPIDOGREL 75 MG TAB PO ONE (11:57)
[2022-12-25 12:04] LABS: O2 Sat Blood Gas 65.3 %
[2022-12-25 12:06] LABS: O2 Sat Blood Gas 67.9 %
[2022-12-25 12:08] LABS: O2 Sat Blood Gas 99.4 %
[2022-12-25] MEDS ORDERED: IOPAMIDOL-370 125ML BTL INJ ONE (12:15)
[2022-12-25] MEDS ORDERED: NITROGLYCERIN 1000MCG/10ML SYRINGE INTRACORON ONE (12:17)
[2022-12-25] MEDS ORDERED: IOPAMIDOL-370 100ML BTL INJ ONE ×2 (12:41)
[2022-12-25] MEDS ORDERED: MAG HYDROX/AL HYDROX/SIMETH 30 ML CUP PO PRN (13:01)
[2022-12-25] MEDS ORDERED: ATROPINE SULFATE 0.1 MG/ML 10ML SYRINGE IV PRN (13:01)
[2022-12-25] MEDS ORDERED: NITROGLYCERIN SL TABS 0.4 MG TAB SUBLINGUAL PRN (13:01)
[2022-12-25] MEDS ORDERED: RX INFO: IV CONTRAST WAS GIVEN 1 EACH MISC MISCELLANE PRN (13:01)
[2022-12-25] MEDS ORDERED: ZOLPIDEM 5 MG TAB PO PRN (13:01)
[2022-12-25] MEDS ORDERED: SODIUM CHLORIDE 0.9% 1,000 ML in EMPTY BAG 1 BAG IV SCH (13:15)
--- NOTE | 2022-12-25 13:18 | P.CARDCATH ---
Date of Procedure: 12/25/22 Description of Procedure: Cardiac Catheterization: The patient is a 72-year-old female with a known history of hypertension, hyperlipidemia and diabetes who presented with symptoms of progressive dyspnea and evidence of CHF, she had an abnormal MPI an echocardiogram. Recommendations were made regarding cardiac catheterization, the risks and the complications were discussed with the patient who is in full understanding and agreement. Procedure Description: Patient was brought to lab coordinator in fasting semi-sedated state after receiving Fentanyl and Benadryl achieiving moderate conscious sedated state. Using Xylocaine Anesthesia and Seldinger technique, a 6-Japanese sheath was introduced in the left radial artery . The venous sheaths in the right basilic vein was exchanged to a 6-Japanese sheath, right heart catheterization is performed using Davis-Alaina catheter, both samples and pressures were obtained, cardiac output by thermodilution was calculated. Subsequently, selective coronary angiography was performed using a 5-Japanese for bend Pan catheter. Multiple views of the coronary artery including hemiaxial views were obtained. The 5-Japanese Pigtail catheter was used to cross the aortic valve and LVEDP was calculated. After removing the catheters a 6-Japanese Pan 4 guiding catheter was i ntroduced and after cannulating the left main a 0.014 BMW J-wire was positioned in the distal LAD, subsequently 2.25 x 12 mm Treck was advanced and multiple inflation at 8 art were done, after removing the balloon a 2.5 x 38 mm Xience Misbah point stent was advanced with the help of a guide liner catheter and deployed at 16 art after removing the balloon a 2.75 x 18 mm Xience misbah point was deployed proximal to the first one and dilated at 14 art. Subsequently an IVUS [place] Eye catheter was advanced and imaging were performed. After removing the catheter a 2.5 x 20 mm NC Treck was advanced and multiple inflation at 10 art were done. After removing the balloon and the wire images were obtained and revealed stable successful stenting. Following that, catheter and sheath were removed. Hemostasis was obtained with deployment of TR band . There was no immediate complication. Patient was returned to room in stable condition. Of note, the patient received a total of 9000 units of intravenous heparin as well as intra-arterial verapamil. She received oral loading dose of clopidogrel. Her ACT was followed. She had no chest discomfort or significant EKG changes during the procedure. Findings: Fluoroscopy: Significant calcification of the LAD was noted Left main: This is a large size vessel, bifurcating into LAD and left circumflex, left main has no high-grade stenosis LAD: This is a large size vessel, giving rise to a large proximal diagonal branch following the take off of the diagonal branch there is a 99% eccentric lesion, following that there is a long tubular lesion of to 80% the rest of the vessel has no high-grade stenosis Left circumflex: This is a dominant vessel giving rise to a large proximal obtuse marginal branch distally bifurcating into PDA and PLV the midsegment of the left circumflex has a tubular lesion of about 80% to 90% RCA: This is a small nondominant vessel that has intimal disease of 30-40% without high-grade stenosis Left Ventriculogram: Not performed Hemodynamics: Pulmonary artery saturation 65%, right atrial 68%, arterial 99%, cardiac output by Opal 5.5 L/m and by thermodilution 6.5 L/m. Pulmonary artery systolic of 50 diastolic of 20 with a mean of 30 mmHg, we'll make A wedge pressure A wave of 20 V-wave of 20 with a mean of 14 mmHg, right ventricle systolic of 52 with an end-diastolic of 8 mmHg, right atrium A wave of 6 V-wave of 6 with a mean of 4 mmHg. There was no gradient across the aortic valve , LVEDP was 20-25 mmHg Conclusion: 1. Calcified LAD 2. Critical stenosis in the proximal and mid LAD 3. Severe stenosis in the mid left circumflex 4. Moderate pulmonary hypertension 5. Successful stenting of the proximal and mid LAD with reduction of stenosis from 99% to 0% 6. Intravascular ultrasound imaging Recommendations: The patient will continue on aspirin and Plavix without any interruption for 6 months in addition to aggressive coronary risks modifications. She will be reevaluated regarding the need to undergo revascularization of her left circumflex . The findings and the recommendations were discussed with the patient and the family and they were in full understanding and agreement. Duration of sedation is76 minutes.
[2022-12-25] MEDS: DAPAGLIFLOZIN PROPANEDIOL 10 MG TABLET PO SCH (16:34)
[2022-12-25] MEDS: SPIRONOLACTONE 25 MG TAB PO SCH (16:34)
[2022-12-25] MEDS: glipiZIDE 5 MG TAB PO SCH (16:34)
[2022-12-25 17:06] LABS: Glucose,Whole Blood 266 mg/dL (70-110)
[2022-12-25] MEDS: METOPROLOL SUCCINATE (ER) 25 MG TAB.ER.24H PO SCH (20:03)
[2022-12-25] MEDS ORDERED: ATORVASTATIN 40 MG TAB PO SCH (21:00)
--- NOTE | 2022-12-26 06:37 | P.DS ---
Providers Attending physician: Ciro Jeff Consults: 12/25/22 13:01 Consult Physician Routine Consulting Provider: [facility] Consult Reason/Comments: Post Interventional patient Do you want consulting provider notified?: Already Contacted Primary care physician: [facility] Course: The patient is a 72-year-old female patient who underwent yesterday a heart catheterization and stenting of the LAD by Dr. Jeff. She was seen this morning. She is asymptomatic. She is hemodynamically stable. The left radial site is soft and nontender was mildly bruises but with a good pulse. The patient is going to be discharged home on dual antiplatelet therapy along with intermediate intensity statin. She is also on anti-ischemic medication using beta chantale. She will be seen next week in the office by Dr. Jeff. The physical examination is remarkable for stable vital signs with a regular rhythm and clear breathing sounds bilaterally and no lower extremities edema. The left radial site as described above appeared to be soft and nontender with mildly bruises with a good pulse. Plan - Discharge Summary Discharge Rx Participant: No New Discharge Prescriptions: New Clopidogrel [Plavix] 75 mg PO DAILY #90 tab Continue Venlafaxine HCl [Effexor] 37.5 mg PO DAILY Omeprazole 20 mg PO DAILY Atorvastatin [Lipitor] 40 mg PO HS Aspirin [Adult Low Dose Aspirin EC] 81 mg PO HS glipiZIDE [Glucotrol] 5 mg PO AC-BID Metoprolol Succinate (ER) [Toprol XL] 25 mg PO DAILY Furosemide [Lasix] 40 mg PO DAILY Losartan Potassium 100 mg PO DAILY Discontinued metFORMIN HCL [Glucophage] 1,000 mg PO BID Discharge Medication List Atorvastatin [Lipitor] 40 mg PO HS 08/22/16 [History] Omeprazole 20 mg PO DAILY 08/22/16 [History] Venlafaxine HCl [Effexor] 37.5 mg PO DAILY 08/22/16 [History] Aspirin [Adult Low Dose Aspirin EC] 81 mg PO HS 04/30/17 [History] glipiZIDE [Glucotrol] 5 mg PO AC-BID 01/26/19 [History] Furosemide [Lasix] 40 mg PO DAILY 12/24/22 [History] Losartan Potassium 100 mg PO DAILY 12/24/22 [History] Metoprolol Succinate (ER) [Toprol XL] 25 mg PO DAILY 12/24/22 [History] Clopidogrel [Plavix] 75 mg PO DAILY #90 tab 12/26/22 [Rx] Follow up Appointment(s)/Referral(s): Ciro Jeff MD [STAFF PHYSICIAN] - 01/04/23 9:00 am
[2022-12-26 07:05] LABS: African American GFR (CKD) 48 (>60 ml/min/1.73 sqM); Anion Gap 9 mmol/L; Blood Urea Nitrogen 24 mg/dL (7-17); Calcium 9.8 mg/dL (8.4-10.2); Carbon Dioxide 27 mmol/L (22-30); Chloride 105 mmol/L (98-107); Glucose 118 mg/dL (74-99); Non-African American GFR(CKD) 42 (>60 ml/min/1.73 sqM); Potassium 3.4 mmol/L (3.5-5.1); Sodium 141 mmol/L (137-145)
[2022-12-26] MEDS ORDERED: PANTOPRAZOLE 40 MG TABLET PO SCH (07:30)
[2022-12-26] MEDS: METOPROLOL SUCCINATE (ER) 25 MG TAB.ER.24H PO SCH (08:51)
[2022-12-26] MEDS: SPIRONOLACTONE 25 MG TAB PO SCH (08:51)
[2022-12-26] MEDS: glipiZIDE 5 MG TAB PO SCH (08:51)
[2022-12-26] MEDS: DAPAGLIFLOZIN PROPANEDIOL 10 MG TABLET PO SCH (08:51)
[2022-12-26 08:58] VITALS: BP 175/75; PULSE 95; TEMP 98.3
[2022-12-26] MEDS ORDERED: LOSARTAN 50 MG TAB PO SCH (09:00)
[2022-12-26] MEDS ORDERED: VENLAFAXINE HCL 37.5 MG TAB PO SCH (09:00)
[2022-12-26] MEDS ORDERED: CLOPIDOGREL 75 MG TAB PO SCH (09:00)
[2022-12-26] MEDS ORDERED: ASPIRIN 81 MG PO SCH (09:00)
[2022-12-26 11:11] VITALS: BMI 25.4
== END 2022-12-26 11:27 | disposition home or self-care (01) ==
LOC: CATHCVL 08:23 → 6NMEDSUR 12:42 → CATHCVL 12-26 11:27
PROVIDERS: ATTEND Internal Medicine Interventional Cardiology
DX: I25.10 Atherosclerotic heart disease of native coronary artery without angina pectoris (principal); I25.5 Ischemic cardiomyopathy; Z79.82 Long term (current) use of aspirin; Z79.84 Long term (current) use of oral hypoglycemic drugs; Z79.899 Other long term (current) drug therapy; Z95.5 Presence of coronary angioplasty implant and graft
CPT/HCPCS: 94760; 92978; 93460; 80048; 85018; 82810; 85025; C9600; C1769 ×3; C1887 ×2; C1894; C1725 ×2; C1751; C1753; C1874 ×2; J2001; J3010; J1644; Q9967 ×2

== ENCOUNTER → 2023-01-10 | Outpatient (CLI) | payer MEDICARE ==
[2023-01-10 15:58] LABS: Basophils % (A) 1.2 %; Eosinophils # (A) 0.14 X 10*3/uL (0.04-0.35); Eosinophils % (A) 1.6 %; HCT 42.9 % (37.2-46.3); HGB 13.4 g/dL (12.0-15.0); Immature Grans, Automated 0.2 %; Lymphocytes # (A) 2.42 X 10*3/uL (0.90-5.00); Lymphocytes % (A) 28.2 %; MCH 27.7 pg (27.0-32.0); MCHC 31.2 g/dL (32.0-37.0); MCV 88.8 fL (80.0-97.0); Mean Platelet Volume 9.8 fL (9.5-12.2); Monocytes # (A) 0.49 X 10*3/uL (0.20-1.00); Monocytes % (A) 5.7 %; NRBC Per 100 WBC 0 /100 WBCS (0.0-0.0); Neutrophils # (A) 5.41 X 10*3/uL (1.80-7.70); Neutrophils % (A) 63.1 %; Platelet Count 384 X 10*3/uL (140-440); RBC 4.83 X 10*6/uL (4.10-5.20); RDW 14.6 % (11.5-14.5); WBC 8.58 X 10*3/uL (4.50-10.00)
[2023-01-10 16:26] LABS: ALT 24 U/L (8-44); AST 20 U/L (13-35); African American GFR (CKD) 37.7 (60.0-200.0); Albumin 4.6 g/dL (3.8-4.9); Albumin/Globulin Ratio 1.66 (1.60-3.17); Alkaline Phosphatase 124 U/L (41-126); BUN/Creat Ratio 25.41 Ratio (12.00-20.00); Blood Urea Nitrogen 40.4 mg/dL (9.0-27.0); Calcium 10.3 mg/dL (8.7-10.3); Carbon Dioxide 14.5 mmol/L (20.0-27.5); Chloride 106 mmol/L (96-109); Globulin 2.8 g/dL (1.6-3.3); Glucose 102 mg/dL (70-110); Magnesium 1.6 mg/dL (1.5-2.4); Non-African American GFR(CKD) 32.6 (60.0-200.0); Potassium 5.1 mmol/L (3.5-5.5); Sodium 139 mmol/L (135-145); Total Bilirubin <0.15 mg/dL (0.30-1.20); Total Protein 7.3 g/dL (6.2-8.2)
[2023-01-10 16:38] LABS: Chol/HDL Ratio 6.37 Ratio
== END | disposition home or self-care (01) ==
LOC: LABWHC1 08:39
PROVIDERS: ATTEND Internal Medicine Geriatric Medicine
DX: E11.65 Type 2 diabetes mellitus with hyperglycemia (principal); E83.42 Hypomagnesemia; E78.2 Mixed hyperlipidemia
CPT/HCPCS: 36415; 80053; 80061; 83721; 83735; 85025

== ENCOUNTER → 2023-01-10 | Outpatient (CLI) | payer MEDICARE | END | disposition home or self-care (01) | LOC: LABPAT 08:42 | PROVIDERS: ATTEND Internal Medicine Interventional Cardiology | DX: Z01.812 Encounter for preprocedural laboratory examination (principal); I25.5 Ischemic cardiomyopathy; I25.10 Atherosclerotic heart disease of native coronary artery without angina pectoris ==

== ENCOUNTER 2023-01-14 05:50 | Day surgery (SDC) | payer MEDICARE ==
[2023-01-14] MEDS ORDERED: SODIUM CHLORIDE 0.9% 1,000 ML in EMPTY BAG 1 BAG IV ONE (06:00)
[2023-01-14 06:22] VITALS: RESP 18; TEMP 98.2
[2023-01-14 06:24] LABS: Glucose,Whole Blood 198 mg/dL (70-110)
[2023-01-14] MEDS ORDERED: VERAPAMIL 2.5 MG/ML 2 ML AMP ONE (07:16)
[2023-01-14] MEDS ORDERED: HEPARIN SODIUM 1,000 UN/ML (10ML VL) ONE (07:26)
[2023-01-14] MEDS ORDERED: fentaNYL (PF) 50 MCG/ML 2 ML AMP ONE (07:26)
[2023-01-14] MEDS ORDERED: fentaNYL (PF) 50 MCG/ML 2 ML AMP IV ONE (07:38)
[2023-01-14] MEDS ORDERED: LIDOCAINE 1% INJ 10MG/ML (5 ML VIAL-PF) SQ ONE (07:40)
[2023-01-14] MEDS ORDERED: VERAPAMIL SYRINGE (5 MG/10 ML) INTRAARTER ONE (07:41)
[2023-01-14] MEDS ORDERED: MIDAZOLAM 2 MG/2 ML VIAL IV ONE (07:44)
[2023-01-14] MEDS: HEPARIN SODIUM 1,000 UN/ML (10ML VL) IV ONE ×3 (07:50→08:39)
[2023-01-14] MEDS ORDERED: NITROGLYCERIN 1000MCG/10ML SYRINGE INTRACORON ONE (08:04)
[2023-01-14] MEDS ORDERED: IOPAMIDOL-370 125ML BTL INJ ONE (08:16)
[2023-01-14] MEDS ORDERED: IOPAMIDOL-370 100ML BTL INJ ONE (08:36)
[2023-01-14] MEDS ORDERED: NITROGLYCERIN SL TABS 0.4 MG TAB SUBLINGUAL PRN (08:49)
[2023-01-14] MEDS ORDERED: MAG HYDROX/AL HYDROX/SIMETH 30 ML CUP PO PRN (08:49)
[2023-01-14] MEDS ORDERED: RX INFO: IV CONTRAST WAS GIVEN 1 EACH MISC MISCELLANE PRN (08:49)
[2023-01-14] MEDS ORDERED: ATROPINE SULFATE 0.1 MG/ML 10ML SYRINGE IV PRN (08:49)
[2023-01-14] MEDS ORDERED: ZOLPIDEM 5 MG TAB PO PRN (08:49)
--- NOTE | 2023-01-14 08:59 | P.CARDCATH ---
Date of Procedure: 01/14/23 Description of Procedure: Cardiac Catheterization: The patient is a 72-year-old female who recently presented with symptoms of CHF was noted to have severe disease in the LAD and left circumflex with impairment of her systolic function. Underwent stenting of her LAD and she presented today for further evaluation and possible PCI of the left circumflex. Recommendations were made regarding cardiac catheterization, the risks and the complications were discussed with the patient who is in full understanding and agreement. Procedure Description: Patient was brought to manager laboratory in fasting semi-sedated state after receiving Fentanyl and Benadryl achieiving moderate conscious sedated state. Using Xylocai ne Anesthesia and Seldinger technique, a 6-[place] Citizen sheath was introduced in the left radial artery . Subsequently, selective coronary angiography was performed using a 5-[place] Citizen 4 bend right Pan catheter and 3.75 EBU guiding catheter. Multiple views of the coronary artery including hemiaxial views were obtained. PCI: Using the EBU guiding catheter 0.014 BMW J-wire was positioned in the distal left circumflex subsequently a 2.5 x 15 mm Treck was advanced and multiple inflation at 8 art were done, after removing the balloon an IVUS [place] Eye catheter was introduced and images were obtained, after removing the catheter a 2.75 x 38 mm Xience denise point stent was advanced and deployed at 16 art, after removing the balloon 3.0 x 15 mm Xience denise point stent was deployed proximal to the first one and dilated at 14 art. Repeat intravascular ultrasound imaging was obtained. Subsequently 3.0 x 20 mm NC Treck balloon was advanced and multiple inflation at 10 art were done. After the last inflation the wire was removed and images were obtained and revealed stable successful stenting. Following that, catheter and sheath were removed. Hemostasis was obtained with deployment of TR band . There was no immediate complication. Patient was returned to room in stable condition. Of note, the patient received a total of 7500 units of intravenous heparin as well as intra-arterial verapamil. Her ACT was monitored. She was continued on clopidogrel. She had no chest discomfort or significant EKG changes with the inflations. Findings: Left main: This is a large size vessel, bifurcating into left circumflex and LAD, left main has no high-grade stenosis LAD: This is a large size vessel, reaching to the apex, the stented segment in the proximal and mid LAD is patent with no significant in-stent restenosis. There is mild disease in the mid distal segment with no high-grade stenosis Left circumflex: This is a dominant vessel, giving rise to a large proximal obtuse marginal branch in the mid segment there is long tubular lesion of 95% the distal left circumflex bifurcates into PDA and PLV and has mild intimal disease with no high-grade stenosis RCA: This is a nondominant vessel rise to an acute marginal branch, it has diffuse intimal disease of 40-50%. Left Ventriculogram: Not performed Conclusion: 1. Patent stent in the proximal and mid LAD 2. Critical stenosis in a long segment of a dominant left circumflex 3. Left dominance 4. Successful stenting of a long segment of the left circumflex with reduction of stenosis from 95% to 0% with intravascular ultrasound imaging Recommendations: The patient will continue on aspirin and clopidogrel for 6 months without any interruption in addition to aggressive coronary risks modification, her left ventricle systolic function will be followed closely. The findings and the recommendations were discussed with the patient and the family and they were in full understanding and agreement. Duration of sedation is 57 minutes.
[2023-01-14] MEDS ORDERED: SPIRONOLACTONE 25 MG TAB PO SCH (09:00)
[2023-01-14] MEDS ORDERED: VENLAFAXINE HCL 37.5 MG TAB PO SCH (09:00)
[2023-01-14] MEDS ORDERED: CLOPIDOGREL 75 MG TAB PO SCH (09:00)
[2023-01-14] MEDS ORDERED: NON FORMULARY DRUG (Losartan Potassium [Losartan Potassium] 100 MG Tablet) PO SCH (09:00)
[2023-01-14] MEDS ORDERED: FAMOTIDINE 20 MG TAB PO SCH (09:00)
[2023-01-14] MEDS ORDERED: SODIUM CHLORIDE 0.9% 1,000 ML in EMPTY BAG 1 BAG IV SCH (09:00)
[2023-01-14] MEDS ORDERED: METOPROLOL SUCCINATE (ER) 25 MG TAB.ER.24H PO SCH (09:00)
[2023-01-14] MEDS ORDERED: DAPAGLIFLOZIN PROPANEDIOL 10 MG TABLET PO SCH (09:00)
[2023-01-14 12:12] VITALS: BP 115/62; PULSE 81
[2023-01-14] MEDS ORDERED: NON FORMULARY DRUG (Aspirin [Adult Low Dose Aspirin Ec] 81 MG Tablet.Dr) PO SCH (21:00)
[2023-01-14] MEDS ORDERED: ATORVASTATIN 20 MG TAB PO SCH (21:00)
== END 2023-01-14 12:55 | disposition home or self-care (01) ==
LOC: CATHCVL 05:50
PROVIDERS: ATTEND Internal Medicine Interventional Cardiology
DX: I50.9 Heart failure, unspecified (principal); I11.0 Hypertensive heart disease with heart failure; E11.9 Type 2 diabetes mellitus without complications; F17.210 Nicotine dependence, cigarettes, uncomplicated; Z82.49 Family history of ischemic heart disease and other diseases of the circulatory system; Z79.82 Long term (current) use of aspirin; Z79.899 Other long term (current) drug therapy
CPT/HCPCS: 92978; 93454; C9600; C1769 ×3; C1887; C1894; C1725 ×2; C1753; C1874 ×2; J2250; J2001; J3010; J1644; Q9967 ×2

== ENCOUNTER → 2023-01-15 | Outpatient (CLI) | payer MEDICARE ==
[2023-01-15 20:04] LABS: African American GFR (CKD) 39.5 (60.0-200.0); Non-African American GFR(CKD) 34.1 (60.0-200.0)
== END | disposition home or self-care (01) ==
LOC: LABWHC1 14:30
PROVIDERS: ATTEND Internal Medicine Interventional Cardiology
DX: I10 Essential (primary) hypertension (principal); I25.5 Ischemic cardiomyopathy; E78.2 Mixed hyperlipidemia
CPT/HCPCS: 36415; 82565

== ENCOUNTER → 2023-01-30 | Outpatient (CLI) | payer MEDICARE ==
[2023-01-30 16:14] LABS: Albumin 4.7 g/dL (3.8-4.9); Albumin/Globulin Ratio 1.96 (1.60-3.17); Anion Gap 9.7 mmol/L (10.00-18.00); BUN/Creat Ratio 30.33 Ratio (12.00-20.00); Blood Urea Nitrogen 36.4 mg/dL (9.0-27.0); Calcium 10.7 mg/dL (8.7-10.3); Carbon Dioxide 18.3 mmol/L (20.0-27.5); Globulin 2.4 g/dL (1.6-3.3); HDL Cholesterol 35.4 mg/dL (40.00-60.00); Non-African American GFR(CKD) 45.8 (60.0-200.0); Potassium 4.6 mmol/L (3.5-5.5); Total Bilirubin 0.3 mg/dL (0.30-1.20); Total Protein 7.1 g/dL (6.2-8.2)
[2023-01-30 16:28] LABS: Chol/HDL Ratio 6.05 Ratio; LDL Cholesterol,Direct Reflex 65.8 mg/dL (0.00-129.00)
== END | disposition home or self-care (01) ==
LOC: LABWHC1 09:48
PROVIDERS: ATTEND Nurse Practitioner Adult Health
DX: I10 Essential (primary) hypertension (principal); E78.2 Mixed hyperlipidemia
CPT/HCPCS: 36415; 80053; 80061; 83721

== ENCOUNTER 2023-09-11 10:42 | Day surgery (SDC) | payer MEDICARE ==
[2023-09-10 15:03] VITALS: BMI 22.7
[~2023-09-11 10:42] MED LIST changes: -ALPRAZolam 0.5 MG TAB PO PRN; +ASPIRIN 325 MG TAB PO PRN; -ASPIRIN 325 MG TAB PO STA; -ATORVASTATIN 80 MG TAB PO STA; -HEPARIN SODIUM,PORCINE 10,000 UNIT in SODIUM CHLORIDE 0.9% 1,000 ML IRRIGATION PRN; -HEPARIN SODIUM,PORCINE 2,500 UNIT in SODIUM CHLORIDE 0.9% 250 ML IRRIGATION PRN; -NITROGLYCERIN SL TABS 0.4 MG TAB SUBLINGUAL PRN
[2023-09-11] MEDS ORDERED: SODIUM CHLORIDE 0.9% 1,000 ML IV ONE (11:27)
[2023-09-11] MEDS ORDERED: LIDOCAINE 1% INJ 10MG/ML (20 ML MDV) ONE (14:20)
[2023-09-11] MEDS ORDERED: LIDOCAINE 1% INJ 10MG/ML (20 ML MDV) SQ ONE (14:32)
[2023-09-11] MEDS ORDERED: MIDAZOLAM 2 MG/2 ML VIAL IVP ONE (14:33)
[2023-09-11] MEDS: HEPARIN SODIUM 1,000 UN/ML (10ML VL) IVP ONE ×2 (14:36→15:02)
[2023-09-11] MEDS: MIDAZOLAM 2 MG/2 ML VIAL IVP ONE ×2 (14:42→15:10)
[2023-09-11] MEDS ORDERED: CLOPIDOGREL 75 MG TAB PO ONE (15:02)
[2023-09-11] MEDS ORDERED: CLOPIDOGREL 75 MG TAB ONE (15:03)
[2023-09-11] MEDS ORDERED: NITROGLYCERIN 1000MCG/10ML SYRINGE INTRACORON ONE (15:27)
[2023-09-11] MEDS ORDERED: niCARdipine Syringe (1,000 mcg/10 mL) INTRACORON ONE (15:27)
[2023-09-11] MEDS ORDERED: SODIUM CHLORIDE 0.9% 1,000 ML IV SCH (15:45)
[2023-09-11] MEDS ORDERED: IOPAMIDOL-370 100ML BTL INJ ONE (15:52)
--- NOTE | 2023-09-11 15:56 | IR ---
EXAMINATION TYPE: IR stent intravas non coronary DATE OF EXAM: 09/11/2023 COMPARISON: NONE HISTORY: Fluoroscopy time. Fluoroscopy was provided to the referring clinician.
[2023-09-11 17:49] LABS: Glucose,Whole Blood 126 mg/dL (70-110)
[2023-09-11] MEDS: ACETAMINOPHEN TAB 325 MG TAB PO PRN (18:37)
[2023-09-11 20:06] LABS: Glucose,Whole Blood 178 mg/dL (70-110)
--- NOTE | 2023-09-11 21:01 | P.PCN ---
Date of Procedure: 09/11/23 Operative Findings: Percutaneous peripheral arterial intervention Performing physician Antonio Scales MD Procedure performed - Successful percutaneous peripheral intervention of chronically occluded right SFA using Zilver PTX drug-coated stent with an excellent angiographic results - Adjunctive use of atherectomy and intravascular imaging - Right lower extremity angiogram and left common femoral artery angiogram Indication This is a pleasant 72-year-old female patient who was diagnosed recently with severe symptomatic lower extremities peripheral arterial disease by Dr. Jeff and she underwent an angiogram which revealed critical right SFA and occluded left SFA. She was brought today to undergo an intervention on the right SFA. Unfortunately the SFA disease has progressed significantly and now is a chronically occluded. Approach Left common femoral artery Complications None Level of sedation Moderate sedation length of about 68 minutes Procedure description After obtaining an informed consent the patient was brought to the cardiac analytical lab technician. The left common femoral artery was cannulated using micropuncture technique, the micropuncture wire passed easily and then I placed a 6 Syriac 70 cm sheath at the left common femoral artery over all 3 5 stiff Glidewire. The sheath was advanced all the way till below the bifurcation of the aorta to right and left common iliac arteries. After that I was able to select the right SFA/profunda using 035 stiff Glidewire with a backup support of 5 Syriac rim catheter. Subsequently the catheter was advanced over the wire and then the sheath was advanced over the wire and the catheter to the right common femoral artery. Right lower extremity angiogram was performed with injection through the long sheath and revealed only one vessel runoff below the knee with occluded right SFA on long segment extend from the ostium all the way to the Brady canal. Anticoagulation was initiated using heparin with continuous ACT monitoring throughout the procedure I was able to recanalize the chronically occluded right SFA using 018 wire with a backup support of 018 catheter. Subsequently the catheter was advanced over the wire to the right popliteal then the wire was pulled out and I injected contrast through the catheter to prove that I was in the true lumen and then I advanced an 014 wire through the catheter and the catheter was pulled out. Intravascular ultrasound was performed and showed that I was in the true lumen all the way with a soft plaque involving the SFA on long segment. I did atherectomy of the right SFA using the Hawak one device with the extraction of significant plaque. Subsequently balloon angioplasty was performed using the chocolate ball. An angiogram showed a long area of flow-limiting dissection extends from the ostium all the way to the distal right SFA which I decided to cover by stent. I deployed distally 7.0 x 140 mm and proximally 7.0 x 140 mm and in the midportion 7.0 x 40 mm Zilver PTX drug-coated stent and subsequently the stent was postdilated using 6 mm balloon. Please note that I placed the filter wire before I did the balloon angioplasty and before I did the atherectomy because there was only single vessel run off below the knee. The final angiogram showed good angiographic results and the procedure was completed with no complication Subsequently I did exchange my long sheath into short sheath using a 035 stiff Glidewire before I did selective left common femoral artery angiogram. The procedure was completed with no complication and the patient tolerated the procedure very well Postprocedure management Dual antiplatelet therapy VOLUNTEER SERVICES COORDINATOR of the left SFA
[2023-09-11 23:29] VITALS: RESP 16
[2023-09-12] MEDS: ACETAMINOPHEN TAB 325 MG TAB PO PRN ×2 (02:01→07:46)
[2023-09-12 06:17] LABS: Glucose,Whole Blood 169 mg/dL (70-110)
[2023-09-12 08:12] VITALS: BP 157/72; PULSE 78; TEMP 98.1
[2023-09-12] MEDS ORDERED: CLOPIDOGREL 75 MG TAB PO SCH (09:00)
[2023-09-12] MEDS ORDERED: FAMOTIDINE 20 MG TAB PO PRN (09:03)
[2023-09-12] MEDS ORDERED: DAPAGLIFLOZIN PROPANEDIOL 10 MG TABLET PO SCH (09:15)
[2023-09-12] MEDS ORDERED: VENLAFAXINE HCL 75 MG TAB PO SCH (09:15)
[2023-09-12] MEDS ORDERED: METOPROLOL SUCCINATE (ER) 25 MG TAB.ER.24H PO SCH (09:15)
[2023-09-12] MEDS ORDERED: SPIRONOLACTONE 25 MG TAB PO SCH (09:15)
[2023-09-12] MEDS ORDERED: RIVAROXABAN 2.5 MG TABLET PO SCH (10:00)
--- NOTE | 2023-09-12 11:38 | P.DS ---
Providers Attending physician: Antonio Scales Primary care physician: [facility] Course: This is a 72-year-old female who underwent successful percutaneous peripheral intervention of chronically occluded right SFA with Dr. Scales. Patient is doing well post procedure with no complications started. She reports improvement in her pain of her right lower extremity. She also reports increased warmth of her right lower extremity. She denies any chest pain or pressure. Denies any shor tness of breath. Vital signs are stable. The patient was deemed stable for discharge home today from a cardiac standpoint the patient gives additional information that she has a history of factor V Leyden syndrome. The patient will be discharged home on aspirin and Plavix and will be initiated on Xarelto 2.5 mg twice a day as well. Please see EMR for further hospital course details Discharge Diagnosis Severe symptomatic lower extremity peripheral arterial disease with critical right SFA and occluded left SFA Status post successful percutaneous peripheral intervention of chronically occluded right SFA with drug-coated stent Factor V Leyden syndrome Nurse practitioner note has been reviewed by physician. Signing provider agrees with the documented findings, assessment, and plan of care. Plan - Discharge Summary Discharge Rx Participant: No New Discharge Prescriptions: New Rivaroxaban [Xarelto] 2.5 mg PO BID #60 tablet Continue Venlafaxine HCl [Effexor] 75 mg PO QAM Aspirin [Adult Low Dose Aspirin EC] 81 mg PO HS Metoprolol Succinate (ER) [Toprol XL] 25 mg PO BID #60 tab Clopidogrel [Plavix] 75 mg PO DAILY #90 tab Famotidine [Pepcid] 20 mg PO QAM PRN PRN Reason: Indigestion Dapagliflozin Propanediol [Farxiga] 10 mg PO QAM Losartan [Cozaar] 25 mg PO HS Spironolactone 12.5 mg PO QAM Rosuvastatin Calcium 40 mg PO HS metFORMIN HCL 1,000 mg PO BID Discharge Medication List Venlafaxine HCl [Effexor] 75 mg PO QAM 08/22/16 [History] Aspirin [Adult Low Dose Aspirin EC] 81 mg PO HS 04/30/17 [History] Clopidogrel [Plavix] 75 mg PO DAILY #90 tab 12/26/22 [Rx] Metoprolol Succinate (ER) [Toprol XL] 25 mg PO BID #60 tab 12/26/22 [Rx] Famotidine [Pepcid] 20 mg PO QAM PRN 01/10/23 [History] Dapagliflozin Propanediol [Farxiga] 10 mg PO QAM 07/01/23 [History] Losartan [Cozaar] 25 mg PO HS 07/01/23 [History] Rosuvastatin Calcium 40 mg PO HS 07/01/23 [History] Spironolactone 12.5 mg PO QAM 07/01/23 [History] metFORMIN HCL 1,000 mg PO BID 09/10/23 [History] Rivaroxaban [Xarelto] 2.5 mg PO BID #60 tablet 09/12/23 [Rx] Follow up Appointment(s)/Referral(s): Antonio Scales MD [STAFF PHYSICIAN] - 1 Week (APPOINTMENT MADE ON September @ 9:15AM ) Patient Instructions/Handouts: Peripheral Vascular Disease (DC) Activity/Diet/Wound Care/Special Instructions: *NO LIFTING, PUSHING, OR PULLING ANYTHING OVER 5 POUNDS FOR 5 DAYS *NO DRIVING FOR 3 DAYS *YOU CAN REMOVE YOUR DRESSING TOMORROW BUT DO NOT SUBMERSE YOUR PUNCTURE SITE IN WATER FOR A FEW DAYS TO PREVENT INFECTION - SO NO TUB BATHS, POOLS, HOT TUBS, DISHES...ETC *ANY SIGNS OF BLEEDING (HARDNESS, SWELLING, OR EXCESSIVE BRUISING) HOLD DIRECT PRESSURE ON YOUR PUNCTURE SITE AND COME TO THE NEAREST EMERGENCY ROOM TO GET YOUR PUNCTURE SITE LOOKED AT - DO NOT DRIVE YOURSELF - EITHER CALL EMS OR HAVE SOMEONE DRIVE YOU! Discharge Disposition: HOME SELF-CARE
[2023-09-12] MEDS ORDERED: ATORVASTATIN 80 MG TAB PO SCH (21:00)
[2023-09-12] MEDS ORDERED: ASPIRIN 81 MG PO SCH (21:00)
[2023-09-12] MEDS ORDERED: LOSARTAN 25 MG TAB PO SCH (21:00)
== END 2023-09-12 11:05 | disposition home or self-care (01) ==
LOC: CATHCVL 10:42 → 3SCARD 15:35 → CATHCVL 09-12 11:05
PROVIDERS: ATTEND Internal Medicine Interventional Cardiology
DX: I73.9 Peripheral vascular disease, unspecified (principal); I10 Essential (primary) hypertension; E78.5 Hyperlipidemia, unspecified; E11.9 Type 2 diabetes mellitus without complications; F17.210 Nicotine dependence, cigarettes, uncomplicated; Z82.49 Family history of ischemic heart disease and other diseases of the circulatory system; Z79.84 Long term (current) use of oral hypoglycemic drugs; Z79.82 Long term (current) use of aspirin; Z79.899 Other long term (current) drug therapy
CPT/HCPCS: 37227; 37252; C1894 ×2; C1769 ×4; C1725 ×2; C1714; C1753; C1884; C1874; J2250; J2001; J1644; Q9967; J2305

== ENCOUNTER → 2023-10-16 | Day surgery (SDC) | payer MEDICARE ==
[2023-10-11 11:33] VITALS: BMI 22.8
[~2023-10-16] MED LIST changes: +HEPARIN SODIUM,PORCINE (1 ML) 2,500 UNIT in SODIUM CHLORIDE 0.9% 250 ML IRRIGATION PRN; +HEPARIN SODIUM,PORCINE 10,000 UNIT in SODIUM CHLORIDE 0.9% 1,000 ML IRRIGATION PRN; +ZOLPIDEM 5 MG TAB PO PRN
== END ==
LOC: CATHCVL 10:16
PROVIDERS: ATTEND Internal Medicine Interventional Cardiology
DX: Z53.8 Procedure and treatment not carried out for other reasons (principal); I73.9 Peripheral vascular disease, unspecified; I25.10 Atherosclerotic heart disease of native coronary artery without angina pectoris; E11.9 Type 2 diabetes mellitus without complications; I10 Essential (primary) hypertension; F17.210 Nicotine dependence, cigarettes, uncomplicated; Z82.49 Family history of ischemic heart disease and other diseases of the circulatory system; Z79.82 Long term (current) use of aspirin; Z79.02 Long term (current) use of antithrombotics/antiplatelets; Z79.01 Long term (current) use of anticoagulants; Z79.899 Other long term (current) drug therapy

== ENCOUNTER 2023-11-13 05:56 | Day surgery (SDC) | payer MEDICARE ==
[2023-11-07 13:35] VITALS: BMI 22.8
[~2023-11-13 05:56] MED LIST changes: +ALPRAZolam 0.5 MG TAB PO PRN; -SODIUM CHLORIDE 0.9% 1,000 ML in EMPTY BAG 1 BAG IV ONE
[2023-11-13] MEDS: SODIUM CHLORIDE 0.9% 1,000 ML in EMPTY BAG 1 BAG IV ONE (06:27)
[2023-11-13 06:34] LABS: Basophils # (A) 0.1 k/uL (0-0.2); Basophils % (A) 1 %; Eosinophils # (A) 0.2 k/uL (0-0.7); Eosinophils % (A) 2 %; HGB 13.2 gm/dL (11.4-16.0); Lymphocytes # (A) 2.4 k/uL (1.0-4.8); Lymphocytes % (A) 24 %; MCHC 33.9 g/dL (31.0-37.0); MCV 94.5 fL (80.0-100.0); Mean Platelet Volume 7.5; Monocytes # (A) 0.5 k/uL (0-1.0); Monocytes % (A) 5 %; Neutrophils # (A) 6.8 k/uL (1.3-7.7); Neutrophils % (A) 68 %; Platelet Count 236 k/uL (150-450); RBC 4.12 m/uL (3.80-5.40); RDW 13.5 % (11.5-15.5)
[2023-11-13 06:49] LABS: African American GFR (CKD) 55 (>60 ml/min/1.73 sqM); Anion Gap 10 mmol/L; Blood Urea Nitrogen 34 mg/dL (7-17); Calcium 9.8 mg/dL (8.4-10.2); Carbon Dioxide 17 mmol/L (22-30); Chloride 110 mmol/L (98-107); Glucose 178 mg/dL (74-99); Non-African American GFR(CKD) 48 (>60 ml/min/1.73 sqM); Sodium 137 mmol/L (137-145)
[2023-11-13 07:18] LABS: Potassium 5.6 mmol/L (3.5-5.1)
[2023-11-13 07:35] LABS: Glucose,Whole Blood 146 mg/dL (70-110)
[2023-11-13] MEDS ORDERED: HEPARIN SODIUM 1,000 UN/ML (10ML VL) ONE (08:22)
[2023-11-13] MEDS ORDERED: niCARdipine 25 MG/10 ML VIAL ONE (08:22)
[2023-11-13] MEDS ORDERED: LIDOCAINE 1% INJ 10MG/ML (20 ML MDV) ONE ×2 (08:22→09:29)
[2023-11-13] MEDS: MIDAZOLAM 2 MG/2 ML VIAL IVP ONE ×2 (08:41→08:58)
[2023-11-13] MEDS: LIDOCAINE 1% INJ 10MG/ML (20 ML MDV) SQ ONE ×2 (08:48→09:30)
[2023-11-13] MEDS: HEPARIN SODIUM 1,000 UN/ML (10ML VL) IV ONE (08:53)
[2023-11-13] MEDS ORDERED: fentaNYL (PF) 50 MCG/ML 2 ML AMP ONE (09:01)
[2023-11-13] MEDS: fentaNYL (PF) 50 MCG/ML 2 ML AMP IVP ONE (09:02)
[2023-11-13] MEDS: HYDROmorphone 0.5 MG/0.5 ML SYRINGE IVP ONE (09:07)
[2023-11-13] MEDS: SODIUM CHLORIDE 0.9% 1,000 ML IV ONE (09:49)
[2023-11-13] MEDS: IOPAMIDOL-370 100ML BTL INJ ONE (10:55)
[2023-11-13] MEDS ORDERED: NALOXONE 0.4 MG/ML 1 ML VIAL IVP PRN (11:09)
[2023-11-13] MEDS ORDERED: SODIUM CHLORIDE 0.9% 1,000 ML in EMPTY BAG 1 BAG IV SCH (11:15)
--- NOTE | 2023-11-13 11:19 | P.PCN ---
Date of Procedure: 11/13/23 Operative Findings: PERCUTANEOUS PERIPHERAL INTERVENTION Performing physician Antonio Scales M.D. Procedure performed 1. An attempted balloon angioplasty of the left popliteal artery 2. Left lower extremity angiogram and the right common femoral artery and 3. Ultrasound-guided access of the right common femoral artery Indication The patient is a 73-year-old female patient who sees Dr. Jeff as an outpatient with known lower extremities peripheral arterial disease and occluded right SFA status post COMPANY PILOT of the right SFA and also occluded left popliteal. She was brought today to undergo a COMPANY PILOT of the left popliteal Approach Right common femoral artery Complications None Level of sedation Moderate with a sedation time of 120 minutes Procedure description After obtaining an informed consent the patient was brought to the cardiac label operator. The right common femoral artery was cannulated using micropuncture technique under ultrasound guidance the micropuncture wire passed easily then a 6-Serbian 70 cm sheath was placed at the right common femoral artery. She subsequently was flushed and anticoagulation was initiated using heparin with continuous ACT monitoring. Subsequently I did select the left SFA using 035 stiff Glidewire with a backup support of 5-Serbian rim catheter. Subsequently the sheath was advanced over the wire and the catheter to the distal left SFA and proximal right popliteal. The sheath was advanced all the way. After that left lower extremity angiogram was performed and that showed occluded left popliteal above the knee with reconstitution with anterior tibial and peroneal with extremely blunt distally. Attempting crossing the chronic total occlusion in antegrade technique was unsuccessful using 014 wire and 018 wire and 035 wire. Attempting accessing the anterior tibial and posterior tibial was also unsuccessful. The best way to cross the chronic total occlusion giving how blunt the distal Would be in retrograde technique by accessing the anterior tibial or posterior tibial artery. Giving the amount of contrast limitation we decided to stop at this point. We'll consider treating the patient medically. Conclusion 1. 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 2. Attempting crossing the chronic total occlusion was unsuccessful in antegrade technique only. 3. Consider medical treatment at this point and consider [employer] PILOT in retrograde technique if the patient remains symptomatic Postprocedure management 1. Dual antiplatelet therapy 2. Aggressive cholesterol control 3. Risk factors modification 4. Follow-up with patient
--- NOTE | 2023-11-13 12:00 | IR ---
EXAMINATION TYPE: IR angio extremity LT DATE OF EXAM: 11/13/2023 COMPARISON: NONE HISTORY: Fluoroscopy time. Fluoroscopy was provided to the referring clinician.
--- NOTE | 2023-11-13 13:14 | US ---
EXAMINATION TYPE: US guide vascular access DATE OF EXAM: 11/13/2023 COMPARISON: NONE Real time ultrasound imaging performed for in the slab off mill tender
[2023-11-13] MEDS: SODIUM CHLORIDE 0.9% 500 ML 500 ML with niCARdipine 6.25 MG, NITROGLYCERIN-D5W PMX 0.05... IV ONE (13:19)
[2023-11-13 15:43] VITALS: RESP 14; TEMP 97.3
[2023-11-13 16:41] VITALS: BP 108/66; PULSE 62
== END 2023-11-13 18:39 | disposition home or self-care (01) ==
LOC: CATHCVL 05:56 → 6NMEDSUR 10:55 → CATHCVL 18:39
PROVIDERS: ATTEND Internal Medicine Interventional Cardiology
DX: I70.213 Atherosclerosis of native arteries of extremities with intermittent claudication, bilateral legs (principal)
CPT/HCPCS: 36247; 37224; 75710; 76937 ×2; 80048; 84132; 85025; 99152; 99153 ×7; C1894 ×3; C1769 ×6; J2250; J2001; J3010; J1644; J1170; Q9967

== ENCOUNTER → 2024-03-27 | Outpatient (CLI) | payer MEDICARE ==
--- NOTE | 2024-03-31 07:46 | MM ---
Reason for Exam: Screening (asymptomatic). Last mammogram was performed 1 year(s) and 10 month(s) ago. Patient History: Menarche at age 14. Patient has no children. Postmenopausal. Breast cancer, right, age 49. Previous chest radiation therapy at age 49. Previous chemotherapy at age 49. 1999, Mastectomy on the Right side. 2001, Reduction on the Left side. 2008, Excisional Biopsy on the Left side. Chemotherapy. 2005, TRAM Reconstruction. Radiation Therapy. Maternal aunt had breast cancer, age 80. Maternal aunt had breast cancer, age 40. Prior Study Comparison: 10/28/2019 Left Diagnostic Mammogram, [facility]. 02/22/2021 Left Diagnostic Mammogram, [facility]. 05/21/2022 Left MG 3D diag mammo w/cad , [facility]. Tissue Density: The breasts are heterogeneously dense, which may obscure small masses. Findings: Analyzed By CAD. Unchanged regional, grouped, and diffuse punctate calcifications. Areas of asymmetric density are unchanged. There is no suspicious group of microcalcifications or new suspicious mass in either breast. Overall Assessment: Benign, BI-RAD 2 Management: Screening Mammogram of the left breast in 1 year. . Patient should continue monthly self-breast exams. A clinical breast exam by your physician is recommended on an annual basis. This exam should not preclude additional follow-up of suspicious palpable abnormalities. Electronically signed and approved by: Carlos Lomas M.D. Radiologist
--- NOTE | 2024-03-31 15:41 | BD ---
EXAMINATION TYPE: Axial Bone Density DATE OF EXAM: 03/27/2024 CLINICAL HISTORY: 73 years old Female. ICD-10 CODE: M89.9 DISORDER OF BONE Height: 66.75" Weight: 147.8lbs FRAX RISK QUESTIONS: Alcohol (3 or more units per day): No Family History (Parent hip fracture): Yes, Mother Glucocorticoids (More than 3mos): (Ex: prednisone, prednisolone, methylprednisolone, dexamethasone, and hydrocortisone). History of Fracture in Adulthood: No Secondary Osteoporosis: 1. Type 1 Diabetes: No 2. Hyperthyroidism: No 3. Menopause before 45: No 4. Malnutrition: No 5. Chronic liver disease: No Rheumatoid Arthritis: No Current Tobacco Use: Occasionally RISK FACTORS HISTORY OF: Hip Fracture (Right/Left): No Spine Fracture: No History of Wrist Fracture: No Surgery to Spine/Hip(right/left)/Wrist (right/left): No MEDICATIONS: Thyroid Medications: No Osteoporosis Medications: No EXAM MEASUREMENTS: Bone mineral densitometry was performed using the [employer] System. Bone mineral density as measured about the Lumbar spine is: ----- L1-L4(G/cm2): 0.978 T Score Values are as follows: ----- L1: -2.5 ----- L2: -2.2 ----- L3: -0.7 ----- L4: -1.6 ----- L1-L4: -1.7 Z Score Values are as follows: ----- L1: -0.8 ----- L2: -0.6 ----- L3: 0.9 ----- L4: 0.0 ----- L1-L4: -0.1 Bone mineral density has: decreased -7.0% since study of: 01/15/2019 Bone mineral density about the R hip (g/cm2): 0.607 Bone mineral density about the L hip (g/cm2): 0.690 T Score values are as follows: -----R Neck: -2.6 -----L Neck: -2.3 -----R Total: -3.2 -----L Total: -2.5 Z Score values are as follows: -----R Neck: -0.9 -----L Neck: -0.6 -----R Total: -1.7 -----L Total: -1.0 Bone mineral density has: decreased -19.1% since study of: 01/15/2019 FRAX%s: The graph provided illustrates a 25.8% chance for a major osteoporotic fx and a 11.6% chance for the hips probability for fx in 10 years time. IMPRESSION: Osteoporosis (T Score less than -2.5). There is increased fracture risk and therapy is usually indicated based on age. Re-Screen 1-2 years. NOTE: T-SCORE=SD OF THE YOUNG ADULT MEAN.
== END | disposition home or self-care (01) ==
LOC: RADMAMWWP 14:51
PROVIDERS: ATTEND Internal Medicine Geriatric Medicine
DX: Z12.31 Encounter for screening mammogram for malignant neoplasm of breast (principal); M81.0 Age-related osteoporosis without current pathological fracture; M85.89 Other specified disorders of bone density and structure, multiple sites; Z78.0 Asymptomatic menopausal state; M89.9 Disorder of bone, unspecified; Z80.3 Family history of malignant neoplasm of breast
CPT/HCPCS: 77067; 77080

== ENCOUNTER → 2024-10-09 | Outpatient (CLI) | payer MEDICARE ==
[2024-10-09 10:34] LABS: African American GFR (CKD) 58 (>60 ml/min/1.73 sqM); Blood Urea Nitrogen 25 mg/dL (7-17); Non-African American GFR(CKD) 50 (>60 ml/min/1.73 sqM)
--- NOTE | 2024-10-09 12:08 | CT ---
CTA abdomen the common femoral artery is patent without significant stenosis. HISTORY: Leg pain, ischemia of the lower extremities. COMPARISON: None TECHNIQUE: Multiple axial images obtained through the abdomen and pelvis and lower extremities on the uneventful administration of nonionic IV contrast. The exam was performed according to the [facility] CTA protocol. 3-D postprocessing was performed. Findings: Inflow CTA: There is mild scattered arteriosclerotic calcifications abdominal aorta and iliac vessels but there i s no significant stenosis. There is no aneurysm. Out flow CTA: On the right, the common femoral artery is patent without significant stenosis. There is overlapping arterial stents in the origin of the superficial femoral artery to the adductor canal. The stent is p atent without stenosis. The right popliteal artery is patent without significant stenosis. There are scattered atherosclerotic plaques. On the left, the left common femoral artery is patent without significant stenosis. The left superfic ial femoral artery is occluded at its origin to the level of the adductor canal where it is reconstit uted via left profunda femoral collaterals. The popliteal artery is occluded at its origin. Runoff CTA: On the right, there is two-vessel runoff via the anterior tibial artery and peroneal artery. The post erior tibial artery is occluded proximally. On the left there is two-vessel runoff via the anterior t ibial artery and peroneal artery. The posterior tibial artery is occluded proximally. Nonvascular findings: Visualized lung bases are clear. The gallbladder is normal. The solid visceral organs of the upper abdomen unremarkable. There are scattered small nonobstructing renal calcifications. There is no hydronephrosis. The bowel loops are normal in caliber and no dilatation or obstruction. No free intraperitoneal air o r fluid or inflammatory changes. No pelvic mass or adenopathy. The osseous structures are intact. IMPRESSION: 1. No significant inflow disease. 2. No significant outflow disease on the right. The superficial femoral artery stents are patent. 3. 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 4. Two-vessel runoff bilaterally via the anterior tibial arteries and peroneal arteries. Posterior ti bial arteries are occluded proximally. [facility], , 10/09/2024 12:05 PM
== END | disposition home or self-care (01) ==
LOC: RADCTMAIN 09:39
PROVIDERS: ATTEND Internal Medicine Interventional Cardiology
DX: I70.221 Atherosclerosis of native arteries of extremities with rest pain, right leg (principal); I25.10 Atherosclerotic heart disease of native coronary artery without angina pectoris
CPT/HCPCS: 82565; 84520; 75635; 36415; Q9967